=== PATIENT | male | born 1960 | race Two or more races ===

== ENCOUNTER 2020-07-31 12:12 | Outpatient (REF) | payer OTHER, SELFPAY ==
--- NOTE | 2020-07-31 12:23 | XR_ITS ---
EXAMINATION: XR knee LT 4V CLINICAL INFORMATION: Reason for Exam PAIN IN LEFT KNEE COMPARISON: None available at the time of this dictation. TECHNIQUE: frontal, lateral, tunnel and patella sunrise views FINDINGS: BONES: No fracture or dislocation is present. JOINTS: Narrowing of joint spaces and developed osteophytes from the edges of articular surfaces suggest degenerative osteoarthritis. SOFT TISSUE: Normal XR/XR knee LT 4V IMPRESSION: Mild DJD primarily medial compartment.
--- NOTE | 2020-07-31 12:24 | XR_ITS ---
EXAMINATION: XR ANKLE, LEFT CLINICAL INFORMATION: Left ankle pain. COMPARISON: None TECHNIQUE: AP, lateral, and mortise views of the left ankle. FINDINGS: The bones and soft tissues are normal. No fracture. Alignment is anatomic. Joint spaces are maintained. No joint effusion. XR/XR ankle LT min 3V IMPRESSION: Unremarkable radiographic appearance of the left ankle.
== END 2020-07-31 12:13 | disposition home or self-care (01) ==
LOC: HO.XRAY 12:12
PROVIDERS: Absent Provider Family Medicine; PCP Family Medicine; Visit Provider Nurse Practitioner Family
DX: M25.562 Pain in left knee (principal); M25.572 Pain in left ankle and joints of left foot; E03.9 Hypothyroidism, unspecified; E78.5 Hyperlipidemia, unspecified; I10 Essential (primary) hypertension; Z79.899 Other long term (current) drug therapy
CPT/HCPCS: 73564; 73610

== ENCOUNTER 2021-01-28 09:29 | Outpatient (REF) | payer OTHER, SELFPAY ==
--- NOTE | ~2021-01-28 | XR_ITS ---
EXAMINATION: LUMBAR SPINE, RIGHT KNEE, AND LEFT KNEE. CLINICAL INFORMATION: Pain COMPARISON: Lumbar spine of July 24, 2009. Right knee of August 21, 2018 TECHNIQUE: 4 views of each knee, 3 view lumbar spine. FINDINGS: There are 5 nonrib bearing lumbar vertebra. No acute fractures evident. There is a grade 1 spondylolisthesis L5-S1 with loss of disc space. There appears to be L5 pars defects present. There is narrowing of the T12-L1 disc space with marginal spurring and sclerosis. Sacroiliac joints unremarkable. 4 views of the right knee demonstrate mild narrowing of the medial joint space compartment. No acute fracture or effusion is seen. There is mild spurring patellofemoral joint with maintenance of the joint space. 4 views of the left knee do not demonstrate any evidence of acute fracture or dislocation. Joint spaces are maintained. No effusion present. There is minimal patellar spurring present. There is a bony density density adjacent to the lateral femoral condyle may represent secondary ossification center or sequela of previous trauma. XR/XR knee LT 4V IMPRESSION: Grade 1 spondylolisthesis L5-S1 with bilateral pars defects of L5. Mild degenerative change of the right knee involving the medial joint space compartment and patellofemoral joint. Minimal patellofemoral joint degenerative spurring of the left knee.
--- NOTE | ~2021-01-28 | XR_ITS ---
EXAMINATION: LUMBAR SPINE, RIGHT KNEE, AND LEFT KNEE. CLINICAL INFORMATION: Pain COMPARISON: Lumbar spine of July 24, 2009. Right knee of August 21, 2018 TECHNIQUE: 4 views of each knee, 3 view lumbar spine. FINDINGS: There are 5 nonrib bearing lumbar vertebra. No acute fractures evident. There is a grade 1 spondylolisthesis L5-S1 with loss of disc space. There appears to be L5 pars defects present. There is narrowing of the T12-L1 disc space with marginal spurring and sclerosis. Sacroiliac joints unremarkable. 4 views of the right knee demonstrate mild narrowing of the medial joint space compartment. No acute fracture or effusion is seen. There is mild spurring patellofemoral joint with maintenance of the joint space. 4 views of the left knee do not demonstrate any evidence of acute fracture or dislocation. Joint spaces are maintained. No effusion present. There is minimal patellar spurring present. There is a bony density density adjacent to the lateral femoral condyle may represent secondary ossification center or sequela of previous trauma. XR/XR knee RT 4V IMPRESSION: Grade 1 spondylolisthesis L5-S1 with bilateral pars defects of L5. Mild degenerative change of the right knee involving the medial joint space compartment and patellofemoral joint. Minimal patellofemoral joint degenerative spurring of the left knee.
--- NOTE | ~2021-01-28 | XR_ITS ---
EXAMINATION: LUMBAR SPINE, RIGHT KNEE, AND LEFT KNEE. CLINICAL INFORMATION: Pain COMPARISON: Lumbar spine of July 24, 2009. Right knee of August 21, 2018 TECHNIQUE: 4 views of each knee, 3 view lumbar spine. FINDINGS: There are 5 nonrib bearing lumbar vertebra. No acute fractures evident. There is a grade 1 spondylolisthesis L5-S1 with loss of disc space. There appears to be L5 pars defects present. There is narrowing of the T12-L1 disc space with marginal spurring and sclerosis. Sacroiliac joints unremarkable. 4 views of the right knee demonstrate mild narrowing of the medial joint space compartment. No acute fracture or effusion is seen. There is mild spurring patellofemoral joint with maintenance of the joint space. 4 views of the left knee do not demonstrate any evidence of acute fracture or dislocation. Joint spaces are maintained. No effusion present. There is minimal patellar spurring present. There is a bony density density adjacent to the lateral femoral condyle may represent secondary ossification center or sequela of previous trauma. XR/XR lumbar spine 2-3V IMPRESSION: Grade 1 spondylolisthesis L5-S1 with bilateral pars defects of L5. Mild degenerative change of the right knee involving the medial joint space compartment and patellofemoral joint. Minimal patellofemoral joint degenerative spurring of the left knee.
[2021-01-28 10:41] LABS: Hematocrit 35.9 % (42-52); Hemoglobin 12.6 g/dl (14.0-18.0); Mean Corpuscular HGB Conc 35.1 g/dl (31.0-36.0); Mean Corpuscular Hemoglobin 30.6 pg (27.0-33.0); Mean Corpuscular Volume 87.1 fL (80-98); Mean Platelet Volume 9.2 fL (9.4-12.4); Platelet Count 281 X10*3/uL (160-400); Red Blood Count 4.12 X10*6/uL (4.60-5.80); Red Cell Distribution Width 12.6 % (11.0-16.0)
[2021-01-28 10:50] LABS: Estimated Average Glucose 223 mg/dL; Hemoglobin A1c % 9.4 %
[2021-01-28 11:24] LABS: Alanine Aminotransferase 43 U/L (0-40); Albumin Level 4.3 g/dL (3.5-5.0); Alkaline Phosphatase 123 U/L (39-117); Anion Gap 16 (12-20); Aspartate Amino Transferase 22 U/L (5-37); Bilirubin Direct 0.2 mg/dL (0.0-0.5); Bilirubin Total 0.5 mg/dL (0.0-1.0); Blood Urea Nitrogen 18 mg/dL (9-16); Calcium 9.7 mg/dL (8.4-10.2); Carbon Dioxide 22 mmol/L (22-29); Chloride 99 mmol/L (96-108); Cholesterol 149 mg/dL; Estimated Glomerular Filt Rate 53; Glucose Random 380 mg/dL (60-115); HDL Cholesterol 33 mg/dL; LDL Cholesterol Calculated 78 mg/dl; Potassium 4.5 mmol/L (3.3-5.1); Sodium 132 mmol/L (135-145); Total Protein 6.7 g/dL (6.5-8.0); Triglycerides 194 mg/dL
[2021-01-28 11:33] LABS: Thyroid Stimulating Hormone 1.77 uIU/mL (0.32-4.0)
[2021-01-28 15:46] LABS: Creatinine Urine 34.26 mg/dL; Microalbum/Creatinine Ratio Ur 23.3 ug/mg cr
== END 2021-01-28 09:30 | disposition home or self-care (01) ==
LOC: HO.LAB 09:29
PROVIDERS: PCP Family Medicine; Visit Provider Family Medicine
DX: M25.561 Pain in right knee (principal); M25.562 Pain in left knee; M54.5 Low back pain; E03.9 Hypothyroidism, unspecified; E11.29 Type 2 diabetes mellitus with other diabetic kidney complication; E78.5 Hyperlipidemia, unspecified; I10 Essential (primary) hypertension
CPT/HCPCS: 36415; 72100; 73564; 80048; 80061; 80076; 82043; 82306; 83036; 84439; 84443; 85027

== ENCOUNTER 2022-08-20 07:21 | Outpatient (REF) | payer MEDICARE, SELFPAY ==
[2022-08-20 09:01] LABS: Hematocrit 36.4 % (42.0-52.0); Hemoglobin 12.6 g/dl (14.0-18.0); Mean Corpuscular HGB Conc 34.6 g/dl (31.0-36.0); Mean Corpuscular Volume 86.7 fL (80.0-98.0); Mean Platelet Volume 9.5 fL (9.4-12.4); Platelet Count 292 X10*3/uL (160-400); Red Cell Distribution Width 12.5 % (11.0-16.0); White Blood Count 11.3 X10*3/uL (4.8-10.8)
[2022-08-20 09:14] LABS: Estimated Average Glucose 232 mg/dL; Hemoglobin A1c % 9.7 %
[2022-08-20 09:50] LABS: Creatinine Urine 112.32 mg/dL; Microalbum/Creatinine Ratio Ur 56.9 ug/mg cr
[2022-08-20 09:51] LABS: Alanine Aminotransferase 41 U/L (0-40); Albumin Level 4.2 g/dL (3.5-5.0); Alkaline Phosphatase 97 U/L (39-117); Anion Gap 16 (12-20); Aspartate Amino Transferase 20 U/L (5-37); Bilirubin Direct 0.2 mg/dL (0.0-0.5); Bilirubin Total 0.4 mg/dL (0.0-1.0); Blood Urea Nitrogen 20 mg/dL (9-16); Calcium 9.8 mg/dL (8.4-10.2); Carbon Dioxide 26 mmol/L (22-29); Chloride 102 mmol/L (96-108); Cholesterol 146 mg/dL; Estimated Glomerular Filt Rate 53; Glucose Random 171 mg/dL (60-115); HDL Cholesterol 33 mg/dL; LDL Cholesterol Calculated 87 mg/dl; Potassium 4.5 mmol/L (3.3-5.1); Sodium 139 mmol/L (135-145); Total Protein 6.5 g/dL (6.5-8.0); Triglycerides 132 mg/dL
[2022-08-20 10:12] LABS: Free T4 (Free Thyroxine) 1.25 ng/dL (0.71-1.85); Thyroid Stimulating Hormone 3.94 uIU/mL (0.32-4.0); Vitamin D 25-OH Total 26.5 ng/mL (>30)
== END 2022-08-20 07:22 | disposition home or self-care (01) ==
LOC: HO.LAB 07:21
PROVIDERS: PCP Family Medicine; Visit Provider Family Medicine
DX: I10 Essential (primary) hypertension (principal); E11.9 Type 2 diabetes mellitus without complications
CPT/HCPCS: 36415; 80048; 80061; 80076; 82043; 82306; 83036; 84439; 84443; 85027

== ENCOUNTER 2022-12-01 07:06 | Outpatient (REF) | payer MEDICARE, SELFPAY ==
[2022-12-01 07:27] LABS: MANUAL DIFF FLAG NO
[2022-12-01 07:36] LABS: Basophils Percent Auto 0.3 % (0-2); Eosinophils Absolute Auto 0.5 X10*3/uL (0.0-0.4); Eosinophils Percent Auto 4.4 % (0-4); Hematocrit 36.3 % (42.0-52.0); Hemoglobin 12.6 g/dl (14.0-18.0); Imm Gran Abs Auto 0.04 X10*3/uL (0.00-0.03); Imm Gran Pct Auto 0.4 % (0.0-0.4); Lymphocytes Absolute Auto 3.1 X10*3/uL (1.2-4.9); Mean Corpuscular HGB Conc 34.7 g/dl (31.0-36.0); Mean Corpuscular Hemoglobin 30.1 pg (27.0-33.0); Mean Corpuscular Volume 86.6 fL (80.0-98.0); Monocytes Percent Auto 8.8 % (2-11); Neutrophils Absolute Auto 6.2 x10*3/uL (2.0-8.3); Neutrophils Percent Auto 57.1 % (45-73); Platelet Count 280 X10*3/uL (160-400); Red Blood Count 4.19 X10*6/uL (4.60-5.80); Red Cell Distribution Width 12.8 % (11.0-16.0); White Blood Count 10.8 X10*3/uL (4.8-10.8)
[2022-12-01 08:25] LABS: Alanine Aminotransferase 34 U/L (0-40); Albumin Level 4.2 g/dL (3.5-5.0); Alkaline Phosphatase 86 U/L (39-117); Anion Gap 10 (12-20); Aspartate Amino Transferase 25 U/L (5-37); Bilirubin Direct 0.1 mg/dL (0.0-0.5); Bilirubin Total 0.4 mg/dL (0.0-1.0); Blood Urea Nitrogen 17 mg/dL (9-16); Calcium 10.3 mg/dL (8.4-10.2); Carbon Dioxide 30 mmol/L (22-29); Chloride 102 mmol/L (96-108); Estimated Glomerular Filt Rate > 60; Glucose Random 137 mg/dL (60-115); Potassium 4.4 mmol/L (3.3-5.1); Sodium 138 mmol/L (135-145); Total Protein 6.5 g/dL (6.5-8.0)
[2022-12-01 08:32] LABS: Estimated Average Glucose 151 mg/dL; Hemoglobin A1c % 6.9 %
[2022-12-01 08:48] LABS: Vitamin B12 820 pg/mL (200-900)
== END 2022-12-01 07:07 | disposition home or self-care (01) ==
LOC: HO.LAB 07:06
PROVIDERS: PCP Family Medicine; Visit Provider Family Medicine
DX: E11.9 Type 2 diabetes mellitus without complications (principal); D64.9 Anemia, unspecified
CPT/HCPCS: 36415; 80048; 80076; 82607; 83036; 85025

== ENCOUNTER 2023-05-19 08:14 | Outpatient (REF) | payer MEDICARE, SELFPAY ==
[2023-05-19 11:44] LABS: MANUAL DIFF FLAG NO
[2023-05-19 11:47] LABS: Basophils Absolute Auto 0.1 X10*3/uL (0.0-0.2); Basophils Percent Auto 0.7 % (0-2); Eosinophils Absolute Auto 0.6 X10*3/uL (0.0-0.4); Eosinophils Percent Auto 5.3 % (0-4); Hemoglobin 13.7 g/dl (14.0-18.0); Imm Gran Abs Auto 0.04 X10*3/uL (0.00-0.03); Imm Gran Pct Auto 0.4 % (0.0-0.4); Lymphocytes Percent Auto 28.7 % (20-40); Mean Corpuscular HGB Conc 34.3 g/dl (31.0-36.0); Mean Corpuscular Hemoglobin 30.2 pg (27.0-33.0); Mean Corpuscular Volume 88.3 fL (80.0-98.0); Mean Platelet Volume 10.4 fL (9.4-12.4); Monocytes Absolute Auto 0.9 X10*3/uL (0.1-1.2); Monocytes Percent Auto 8.2 % (2-11); Neutrophils Absolute Auto 5.9 x10*3/uL (2.0-8.3); Neutrophils Percent Auto 56.7 % (45-73); Platelet Count 371 X10*3/uL (160-400); Red Blood Count 4.53 X10*6/uL (4.60-5.80); Red Cell Distribution Width 12.5 % (11.0-16.0); White Blood Count 10.4 X10*3/uL (4.8-10.8)
[2023-05-19 11:54] LABS: Appearance Urine Cloudy; Color Urine Yellow; Glucose Urine UA >=1000 mg/dL (Negative); Leukocyte Esterase Urine Moderate (2+) (Negative); Nitrite Urine Negative (Negative); Specific Gravity - Urine 1.015 (1.005-1.025); UMIC TRIGGER UA YES; Urine Blood Negative (Negative); Urine Ketones Negative (Negative); Urine Protein Negative (Neg-Trace)
[2023-05-19 11:57] LABS: Estimated Average Glucose 260 mg/dL; Hemoglobin A1c % 10.7 % (<6.0)
[2023-05-19 11:59] LABS: Bacteria Urine 1+ (None Seen); Hyaline Casts Urine 0-2 /LPF (0-2); RBC Urine 0-2 /HPF (0-2); Squamous Epithelial Cell Urine 0-2 /HPF (0-2); WBC Urine >50 /HPF (0-5)
[2023-05-19 12:22] LABS: Alanine Aminotransferase 77 U/L (0-40); Albumin Level 4.6 g/dL (3.5-5.0); Alkaline Phosphatase 126 U/L (39-117); Anion Gap 16 (12-20); Aspartate Amino Transferase 45 U/L (5-37); Bilirubin Direct 0.1 mg/dL (0.0-0.5); Bilirubin Total 0.3 mg/dL (0.0-1.0); Blood Urea Nitrogen 22 mg/dL (9-16); Calcium 10.4 mg/dL (8.4-10.2); Carbon Dioxide 26 mmol/L (22-29); Chloride 98 mmol/L (96-108); Cholesterol 142 mg/dL (<200); Estimated Glomerular Filt Rate 50; Glucose Random 291 mg/dL (60-115); HDL Cholesterol 38 mg/dL (>40); Iron 131 mcg/dL (45-160); LDL Cholesterol Calculated 76 mg/dL (<100); Percent Iron Saturation 37 % (15-50); Potassium 4.4 mmol/L (3.3-5.1); Sodium 136 mmol/L (135-145); Total Iron Binding Capacity 351 mcg/dL (228-428); Total Protein 7.9 g/dL (6.5-8.0); Triglycerides 141 mg/dL (<150); Unsaturated Iron Binding 220 ug/dL
[2023-05-19 12:28] LABS: Creatinine Urine 50.42 mg/dL; Microalbum/Creatinine Ratio Ur 75.3 ug/mg cr (<30)
[2023-05-19 12:37] LABS: Free T4 (Free Thyroxine) 1.25 ng/dL (0.71-1.85); Thyroid Stimulating Hormone 2.99 uIU/mL (0.32-4.0); Vitamin D 25-OH Total 49.9 ng/mL (>30)
[2023-05-19 12:44] LABS: Folate 14.2 ng/mL (> or = 4.0); Prostate Specific Antigen 1.14 ng/mL (<0.05-4.0); Vitamin B12 1559 pg/mL (200-900)
== END 2023-05-19 08:15 | disposition home or self-care (01) ==
LOC: HO.HHCL 08:14
PROVIDERS: Visit Provider Family Medicine
DX: D64.9 Anemia, unspecified (principal); R35.1 Nocturia; E11.9 Type 2 diabetes mellitus without complications; E03.9 Hypothyroidism, unspecified; Z12.5 Encounter for screening for malignant neoplasm of prostate; E78.5 Hyperlipidemia, unspecified; I10 Essential (primary) hypertension; J44.9 Chronic obstructive pulmonary disease, unspecified
CPT/HCPCS: 36415; 80048; 80061; 80076; 81001; 82043; 82306; 82570; 82607; 82746; 83036; 83540; 84153; 84439; 84443; 85025; 87086; 87088; 87186

== ENCOUNTER → 2023-06-21 07:48 | Outpatient (REF) | payer MEDICARE, SELFPAY ==
--- NOTE | ~2023-06-21 | NM_ITS ---
EXAMINATION: CA RADIONUCLIDE SOLID FOOD GASTRIC EMPTYING 4-HOUR STUDY CLINICAL INFORMATION: Intermittent nausea and uncontrolled diabetes. COMPARISON: None TECHNIQUE: A standard meal consisting of 4 oz of Egg Beaters brand tagged with 1000 microcuries Tc-99m Sulfur Colloid, 8 oz water and 2 slices of toast with jelly was administered orally to the patient. Images were obtained using a dual head gamma camera in the anterior and posterior projections over of the stomach immediately post ingestion and at hourly intervals up to 4 hours post ingestion. The anterior and posterior counts at each time interval were averaged using the geometric mean and expressed as percentage of the immediate post ingestion counts. FINDINGS: There is good visualization of activity in the stomach immediately post ingestion. As the study progresses, there is good clearance of activity from the stomach and visualization of progressively increasing small bowel activity. By the end of the study, there is almost no retention noted in the stomach. Retention in the stomach at each time interval was: 1 hour 69% (normal 37%-90%) 2 hours 52% (normal 30%-60%) 3 hours 27% 4 hours 8% (normal 0%-10%) NM/CA gastroesophageal reflux IMPRESSION: Normal 4-hour solid food gastric emptying study. For solid meal, rapid gastric emptying is less than 30% at 60 minutes. Delayed gastric emptying criteria is more than 60% remaining at 120 minutes or more than 10% at 240 minutes. The 4-hour value is the best discriminator of a normal or abnormal result). Gastric emptying study grading per JNMT Consensus Recommendations in 2008 (https://tech.snmjournals.org/content/36/44) Grade 1 (mild retention): 11-20% at 4h Grade 2 (moderate retention): 21-35% at 4h Grade 3 (severe retention): 36-50% at 4h Grade 4 (very severe retention): >50% retention at 4h
== END ==
LOC: HO.NUCMED 07:48
PROVIDERS: PCP Family Medicine; Visit Provider Family Medicine
DX: R11.0 Nausea (principal)
CPT/HCPCS: 78262; A9541

== ENCOUNTER 2023-06-28 11:31 | Outpatient (REF) | payer MEDICARE, SELFPAY | END 2023-06-28 11:32 | disposition home or self-care (01) | LOC: HO.HHCL 11:31 | PROVIDERS: Visit Provider Family Medicine | DX: N39.0 Urinary tract infection, site not specified (principal) | CPT/HCPCS: 87086; 87088; 87186 ==

== ENCOUNTER 2023-07-29 13:42 | Outpatient (REF) | payer MEDICARE, SELFPAY | END 2023-07-29 13:43 | disposition home or self-care (01) | LOC: HO.HHCLNP 13:42 | PROVIDERS: Visit Provider Family Medicine | DX: R35.1 Nocturia (principal) | CPT/HCPCS: 87086; 87088; 87186 ==

== ENCOUNTER 2023-08-17 07:43 | Outpatient (AMB) | payer MEDICARE, SELFPAY ==
--- NOTE | 2023-08-17 08:17 | MHC.OFFVIS ---
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 Accompanied by: Self / Same As Patient Allergies dulaglutide [From [facility]] Adverse Reaction (Intermediate, Verified 08/17/23 08:23) infection Medication List - Last Reconciled 08/17/23 by Itz Wray MD acetaminophen ER mg PO amlodipine 10 mg PO DAILY atorvastatin 40 mg PO DAILY chlorthalidone 25 mg PO DAILY famotidine 40 mg PO DAILY finerenone (Kerendia) 10 mg PO DAILY hydroxyzine pamoate 25 mg PO TID lansoprazole 30 mg PO DAILY levothyroxine 75 mcg PO DAILY melatonin mg PO metformin 1,000 mg PO BID metoprolol succinate ER 100 mg PO DAILY olmesartan 40 mg PO DAILY sertraline mg PO tirzepatide (Mounjaro) mg subcut tramadol 50 mg PO Q4H PRN HPI HPI Comments History of Present Illness Details Patient is here for consultation regarding generalized fatigue. He states that he is extremely fatigued and he can only walk very short distances before he has to stop. When he gets up in the morning, he apparently feels short of breath and hence has use inhalers. Then feels better. No clear anginal-type symptoms. Has no history of coronary disease myocardial infarction or cardiomyopathy. Multiple cardiovascular risk factors including diabetes, hypertension, dyslipidemia, chronic kidney disease, smoking. COUNTS INCLUDE 234 BEDS AT THE [facility] Medical History (Updated 08/17/23 @ 09:16 by Itz Wray MD) Smoking Hyperlipidemia, unspecified Essential hypertension Type 2 diabetes mellitus with renal complication Surgical History (Updated 08/17/23 @ 08:25 by Rossana Castillo) No pertinent past surgical history Family History (Updated 08/17/23 @ 08:26 by Rossana Castillo) Mother HTN (hypertension) Father Diabetes Social History (Updated 08/17/23 @ 08:25 by Rossana Castillo) Patient Tobacco Use Status: Current everyday Tobacco user Cigarettes Per Day: 1 Review of Systems Const Denies chills, Denies daytime sleepiness, Denies fatigue, Denies fever(s), Denies frequent falls, Denies night sweats, Denies snoring, Denies weakness, Denies weight gain and Denies weight loss Eyes Denies loss of vision ENT Denies dizziness and Denies hearing loss Card Denies chest pain, Denies chest pain with activity, Denies syncope, Denies rapid heart rate, Denies edema, Denies claudication, Denies leg edema, Denies lightheadedness, Denies palpitations and Denies orthopnea Resp Denies cough, Denies excessive phlegm production, Denies snoring and Denies wheezing GI Denies abdominal pain, Denies hematochezia, Denies change in bowel habits, Denies change in stool character, Denies heartburn, Denies nausea and Denies vomiting Denies hematuria, Denies dysuria and Denies urinary frequency Musc Denies arthralgias, Denies muscle weakness, Denies numbness and Denies tingling Skin/Breast Denies nail changes and Denies rash Neuro Denies Abnormal speech present, Denies dizziness, Denies syncope, Denies frequent falls, Denies loss of vision, Denies memory loss, Denies numbness, Denies tingling and Denies weakness Psych Denies depression and Denies memory loss Endo Denies fatigue and Denies palpitations Aller/Immun Denies wheezing Physical Exam Vital Signs: Last Vital Signs Pulse 76 08/17/23 08:22 BP 122/62 08/17/23 08:22 BMI result Body Mass Index 25.5 Const General: comfortable and no acute distress Orientation/consciousness: patient oriented x3 HEENT Other: Unremarkable Head: Yes normal to inspection Neck Neck: Yes normal visual inspection Chest Chest palpation & inspection: normal inspection of the chest Resp Auscultation: clear to auscultation bilaterally Cardio Palpation: normal PMI Heart sounds: S1 normal heart sound present, S2 normal heart sound present, no gallops, no murmurs and no rubs GI Palpation (GI): Soft to palpation Back/Spine/Pelvis Other: unremarkable Skin General skin exam: no rashes or lesions noted Neuro General: patient oriented x3 Speech: No Abnormal speech present Extrem General: Yes normal to inspection Psych Mental Status: mental status grossly normal Office Procedures EKG Details: EKG with sinus rhythm at 76/Min; no significant ST-T changes and otherwise [place]remark[place] [id number], Complete Assessment & Plan Assessment & Plan (1) Fatigue: Code(s): R53.83 - Other fatigue (2) Shortness of breath: Code(s): R06.02 - Shortness of breath (3) Type 2 diabetes mellitus with renal complication: Code(s): E11.29 - Type 2 diabetes mellitus with other diabetic kidney complication (4) Essential hypertension: Code(s): I10 - Essential (primary) hypertension (5) Hyperlipidemia, unspecified: Code(s): E78.5 - Hyperlipidemia, unspecified (6) Smoking: Code(s): F17.200 - Nicotine dependence, unspecified, uncomplicated Plan Multiple cardiovascular risk factors, exertional fatigue, some shortness of breath. He needs workup for obstructive CAD. Echocardiogram and exercise stress perfusion imaging are being ordered. Once these are completed, will need to see back in follow-up. Otherwise, aggressive risk factor modification. Smoking cessation. Orders: Orders NM cardiolite stress test Today R07.2 - Precordial pain CA echo transthoracic complete Today I25.10 - Atherosclerotic heart disease of three affiliated coronary artery without angina pectoris CA stress test Today R07.2 - Precordial pain Coding Level of Care Code New Pt Level 4 (67198) Diagnoses Fatigue R53.83 Shortness of breath R06.02 Type 2 diabetes mellitus with renal complication E11.29 Essential hypertension I10 Hyperlipidemia, unspecified E78.5 Smoking F17.200 CPT Codes EKG - CPT: 60045-[id number], Complete ([id number])
[2023-08-17 08:22] VITALS: BP 122/62; PULSE 76; BMI 25.5
== END 2023-08-17 08:55 | disposition home or self-care (01) ==
PROVIDERS: PCP Family Medicine; Visit Provider Internal Medicine
DX: R53.83 Other fatigue (principal); R06.02 Shortness of breath; E11.29 Type 2 diabetes mellitus with other diabetic kidney complication; I10 Essential (primary) hypertension; E78.5 Hyperlipidemia, unspecified; F17.200 Nicotine dependence, unspecified, uncomplicated
CPT/HCPCS: 93010; 99204

== ENCOUNTER → 2023-08-17 07:43 | Outpatient (BNVA) | payer MEDICARE, SELFPAY | PROVIDERS: PCP Family Medicine; Visit Provider Internal Medicine | DX: R53.83 Other fatigue (principal); R06.02 Shortness of breath; E11.29 Type 2 diabetes mellitus with other diabetic kidney complication; E78.5 Hyperlipidemia, unspecified; F17.210 Nicotine dependence, cigarettes, uncomplicated | CPT/HCPCS: 93005; 99202 ==

== ENCOUNTER 2023-10-11 08:34 | Outpatient (REF) | payer MEDICARE, SELFPAY ==
[2023-10-11 12:23] LABS: Anion Gap 15 (12-20); Blood Urea Nitrogen 35 mg/dL (9-16); Calcium 9.8 mg/dL (8.4-10.2); Carbon Dioxide 22 mmol/L (22-29); Chloride 104 mmol/L (96-108); Estimated Glomerular Filt Rate 45; Glucose Random 156 mg/dL (60-115); Potassium 4.5 mmol/L (3.3-5.1); Sodium 136 mmol/L (135-145)
== END 2023-10-11 08:35 | disposition home or self-care (01) ==
LOC: HO.HHCL 08:34
PROVIDERS: Visit Provider Family Medicine
DX: E11.22 Type 2 diabetes mellitus with diabetic chronic kidney disease (principal); N18.31 Chronic kidney disease, stage 3a
CPT/HCPCS: 36415; 80048

== ENCOUNTER 2023-10-24 12:53 | Outpatient (REF) | payer MEDICARE, SELFPAY ==
--- NOTE | ~2023-10-24 | XR_ITS ---
EXAMINATION: XR KNEE LEFT XR KNEE RIGHT CLINICAL INFORMATION: Pain COMPARISON: 01/28/2021 TECHNIQUE: Right knee, 3 views Left knee, 4 views FINDINGS: Left knee: Negligible marginal osteophyte formation at the patella. No radiographic evidence of any significant arthritic process at the knee. The joint spaces are well-preserved. Alignment is normal at the patellofemoral and tibiofemoral compartments. No joint effusion or intra-articular osteochondral body. Right knee: Bones, joints and soft tissues have a normal appearance. XR/XR knee RT 3V IMPRESSION: The right knee is radiographically normal. There is negligible osteoarthrosis of the patellofemoral joint of the left knee.
--- NOTE | ~2023-10-24 | XR_ITS ---
EXAMINATION: XR LUMBOSACRAL SPINE CLINICAL INFORMATION: Pain COMPARISON: Lumbar spine radiographs from 01/28/2021 TECHNIQUE: Three views of the lumbosacral spine. FINDINGS: The lumbar vertebral body heights are maintained. No acute compression fractures. At T12-L1, there appears to be worsening loss of anterior disc space, vacuum disc phenomenon, anterior endplate sclerosis and osteophytosis. At L1-L2, there is mild narrowing of disc space, anterior vertebral osteophyte formation and chronic minimal retrolisthesis of L1 on L2. Disc spaces are maintained at L2-L3, L3-L4 and L4-5. Chronic severe degenerative disc disease of L5, bilateral pars defects of L5 and approximately 25% anterolisthesis of L5 on S1. Sacrum and sacroiliac joints are unremarkable. There is dense atherosclerotic calcification of the abdominal aorta without aneurysm. XR/XR lumbar spine 2-3V IMPRESSION: * Interval worsening discovertebral degenerative changes at T12-L1 compared to 01/28/2021. * Chronic severe degenerative disc disease and anterolisthesis at L5-S1.
--- NOTE | ~2023-10-24 | XR_ITS ---
EXAMINATION: XR KNEE LEFT XR KNEE RIGHT CLINICAL INFORMATION: Pain COMPARISON: 01/28/2021 TECHNIQUE: Right knee, 3 views Left knee, 4 views FINDINGS: Left knee: Negligible marginal osteophyte formation at the patella. No radiographic evidence of any significant arthritic process at the knee. The joint spaces are well-preserved. Alignment is normal at the patellofemoral and tibiofemoral compartments. No joint effusion or intra-articular osteochondral body. Right knee: Bones, joints and soft tissues have a normal appearance. XR/XR knee LT 4V IMPRESSION: The right knee is radiographically normal. There is negligible osteoarthrosis of the patellofemoral joint of the left knee.
--- NOTE | ~2023-10-24 | XR_ITS ---
EXAMINATION: XR WRIST LEFT XR WRIST RIGHT CLINICAL INFORMATION: Pain COMPARISON: None TECHNIQUE: Left wrist, 3 views Right wrist, 3 views FINDINGS: RIGHT WRIST: There is ulnar osteophyte formation at the degenerated distal radioulnar joint. Moderate loss of the articular cartilage space of the radiolunate joint with subarticular sclerosis and radial osteophyte formation. A small ossific body measuring up to 0.4 cm in length projects posteromedial to the distal ulna and this has questionable communication with the ulnocarpal joint. Scapholunate joint space is 0.3 cm wide. LEFT WRIST: There is ulnar osteophyte formation at the distal radioulnar joint. There appears to be an ossific body in the region of this joint. Also, an ossific body of 0.8 cm in length is adjacent to the ulnar styloid. This might communicate with the ulnocarpal/radiocarpal joint. There is loss of radiolunate joint space with subarticular sclerosis and radial osteophyte formation. The scapholunate joint space is 0.3 cm wide. Small metacarpal osteophytes are present at the first carpometacarpal joint. 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 * Also, ossific bodies are seen adjacent to each distal ulna, and these possibly communicate with the proximal wrist joint. * There is borderline widening of bilateral scapholunate joint spaces. * Mild osteoarthritis of the left first carpometacarpal joint.
--- NOTE | ~2023-10-24 | XR_ITS ---
EXAMINATION: XR WRIST LEFT XR WRIST RIGHT CLINICAL INFORMATION: Pain COMPARISON: None TECHNIQUE: Left wrist, 3 views Right wrist, 3 views FINDINGS: RIGHT WRIST: There is ulnar osteophyte formation at the degenerated distal radioulnar joint. Moderate loss of the articular cartilage space of the radiolunate joint with subarticular sclerosis and radial osteophyte formation. A small ossific body measuring up to 0.4 cm in length projects posteromedial to the distal ulna and this has questionable communication with the ulnocarpal joint. Scapholunate joint space is 0.3 cm wide. LEFT WRIST: There is ulnar osteophyte formation at the distal radioulnar joint. There appears to be an ossific body in the region of this joint. Also, an ossific body of 0.8 cm in length is adjacent to the ulnar styloid. This might communicate with the ulnocarpal/radiocarpal joint. There is loss of radiolunate joint space with subarticular sclerosis and radial osteophyte formation. The scapholunate joint space is 0.3 cm wide. Small metacarpal osteophytes are present at the first carpometacarpal joint. XR/XR wrist LT min 3V IMPRESSION: * There is osteoarthritis of bilateral DRUJs and radiolunate joints. * Also, ossific bodies are seen adjacent to each distal ulna, and these possibly communicate with the proximal wrist joint. * There is borderline widening of bilateral scapholunate joint spaces. * Mild osteoarthritis of the left first carpometacarpal joint.
== END 2023-10-24 12:54 | disposition home or self-care (01) ==
LOC: HO.HHCX 12:53
PROVIDERS: Visit Provider Family Medicine
DX: M25.50 Pain in unspecified joint (principal)
CPT/HCPCS: 72100; 73110; 73562; 73564

== ENCOUNTER → 2024-01-16 08:50 | Outpatient (BNVA) | payer MEDICARE, SELFPAY | PROVIDERS: PCP Family Medicine; Visit Provider Nurse Practitioner Family ==

== ENCOUNTER 2024-07-13 16:01 | Outpatient (REF) | payer MEDICARE, SELFPAY | END 2024-07-13 16:02 | disposition home or self-care (01) | LOC: HO.HHCLNP 16:01 | PROVIDERS: Visit Provider Family Medicine | DX: N39.0 Urinary tract infection, site not specified (principal) | CPT/HCPCS: 87086; 87088; 87186 ==

== ENCOUNTER 2024-10-16 09:45 | Outpatient (REF) | payer MEDICARE, SELFPAY ==
--- NOTE | ~2024-10-16 | US_ITS ---
EXAMINATION: BILATERAL CAROTID ULTRASOUND WITH DOPPLER HISTORY: intermittent dizziness COMPARISON: There are no prior studies for comparison. TECHNIQUE: Real time and Color and Spectral doppler ultrasonography of the carotid and vertebral arteries was performed in multiple planes. FINDINGS: There is mild plaque at the right carotid bifurcation and a moderate amount of plaque at the left carotid bifurcation. VERTEBRAL FLOW DIRECTION: Antegrade bilaterally. PEAK SYSTOLIC VELOCITIES (in cm/sec): RIGHT: CCA: Prox: 71 Dist: 57 ICA: Prox: 54 Mid: 76 Dist: 113 ICA/CCA Ratio: 1.59 ECA: 62 Peak ICA EDV: 22 LEFT: CCA: Prox: 61 Dist: 58 ICA: Prox: 71 Mid: 94 Dist: 89 ICA/CCA Ratio: 1.54 ECA: 46 Peak ICA EDV: 28 US/US carotid duplex BI IMPRESSION: No significant internal carotid artery stenosis is identified. Electronically signed by: Ceferino Cuba MD 10/16/2024 11:23 AM EDT
--- NOTE | ~2024-10-16 | CT_ITS ---
EXAMINATION: CT HEAD WITHOUT IV CONTRAST HISTORY: intermittent dizziness, increased falls. TECHNIQUE: Unenhanced helical CT of the head was performed per standard departmental protocol. Coronal and sagittal reformats of the head were also evaluated. One or more of the following techniques was used for dose reduction: Automated exposure control, adjustment of the mA and/or kV according to patient size, use of iterative reconstruction technique. DLP: 815 mGy-cm COMPARISON: There are no prior studies for comparison. FINDINGS: BRAIN: The brain parenchyma is unremarkable. There is normal berg/white differentiation. The ventricular system is normal in size and configuration. There is no mass effect or midline shift. No intra- or extra-axial fluid collections are identified. SINUSES: There is fluid in both maxillary sinuses. There is partial opacification of the bilateral ethmoid air cells. There is mucosal thickening in the bilateral frontal sinuses. The mastoid air cells and middle ear cavities are well pneumatized. ORBITS: The visualized orbits are unremarkable. BONES/SOFT TISSUES: The extracranial soft tissues are unremarkable. The calvarium is intact. No suspicious lytic or sclerotic lesions. CT/CT head/brain wo IV con IMPRESSION: 1. No acute intracranial abnormality. 2. Acute bilateral maxillary sinusitis. Electronically signed by: Ceferino Cuba MD 10/16/2024 01:03 PM EDT
--- NOTE | 2024-10-16 11:03 | CA_ITS ---
Transthoracic Echocardiogram Patient (Last, First, Middle): Meg Pérez, Gender: Male Date of : 1960 Age: 64 Procedure Date: 10/16/2024 Procedure Type: Transthoracic Echocardiogram Location: OP Height: 175.26 cm Weight: 80.74 kg BSA: 1.97 m2 Heart Rate: bpm BP: 126 / 78 mmHg Kettle Hand: DARI Referring MD: Suzan Hunter DO Library Specialist: Sha Eckert MD Symptoms: R42 DIZZINESS Study Quality: Fair, contrast ECG Rhythm: Sinus Conclusions: - 1. Technically limited study 2. Hyperdynamic LV ejection fraction with mild dynamic obstructive physiology noted by Valsalva maneuver 3. Cardiac valvular Dopplers within normal limits Findings Procedure Information Contrast agent, definity, is being given per protocol without apparent complications. Left Ventricle Normal left ventricular cavity size. There is normal left ventricular wall thickness. The left ventricular systolic function is hyperdynamic. There is systolic anterior motion of the chordae of the mitral valve. Spectral Doppler is indicative of an impaired relaxation filling pattern. E/E prime ratio is between 8 and 15 consistent with indeterminate filling pressures. there was no significant gradient at rest although with Valsalva there is mildly increased gradient at 20 mm Hg suggestive of mild dynamic obstructive physiology Right Ventricle Normal right ventricular cavity size and systolic function. Atria The left atrium is normal in size. Interatrial shunt cannot be excluded. The right atrium was not well visualized. Aortic Valve The aortic valve was not well visualized. There is no aortic valve stenosis. There is no aortic valve regurgitation. Mitral Valve There is mild anterior and moderate posterior mitral leaflet thickening. There is moderate mitral annular calcification. There is trace mitral valve regurgitation. There is no mitral valve stenosis. Pulmonic Valve The pulmonic valve was not well visualized. Tricuspid Valve The tricuspid valve was not well visualized. Tricuspid regurgitation envelope is inadequate for calculation of right ventricular systolic pressure. Normal right atrial pressure. Great Vessels The aorta was not well visualized. The pulmonary artery was not well visualized. Venous The inferior vena cava is normal in size. Pericardium/Pleural The pericardium was not well visualized. Prior Study Comparison No prior study available for comparison. Measurements 2D Linear Measurements IVSd: 1.08 0.6-0.9/0.6-1.0 cm LVIDd: 4.04 3.9-5.3/4.2-5.9 cm LVIDd Index: 2.05 2.4-3.2/2.2-3.1 cm/m2 LVIDs: 2.54 2.0-3.6 cm LVPWd: 0.91 0.7-1.1 cm LA Diam: 2.70 2.7-3.8/3.0-4.0 cm LAIDs Index: 1.37 1.5-2.3 cm/m2 LV Mass: 159.22 67-162/88-224 g LV Mass Index: 80.82 43-95/49-115 g/m2 LVOT Diam: 2.00 3.0+(-)1.3 cm 2D Systolic Function EF 4C: 80.90 >55% EF 2C: 73.70 >55% EF BiP: 77.60 >55% Mitral Valve MV Pk E: 0.68 MV PK A: 1.07 MV Decel Time: 231.00 E/A: 0.60 E'Lateral: 10.30 E'Medial: 6.74 E/E' Med: 10.10 E/E' Lat: 6.60 PHT: 68.00 MVA PHT: 3.24 Decel Glenn: 2.96 Aortic Valve AoV Pk Werner: 1.49 AoV Mn Werner: 1.02 AoV VTI: 0.24 AoV Pk Grad: 9.00 Aov Mn Grad: 5.00 JEFF Cont.VTI: 2.87 LVOT LVOT Pk Werner: 1.33 LVOT Mn Werner: 0.85 LVOT VTI: 0.22 LVOT Pk Grad: 7.00 LVOT Mn Grad: 3.00 LVOT Diam: 2.00 LVOT Area: 3.14 Diastolic Function MV Pk E: 0.68 MV Pk A: 1.07 E/A: 0.60 E'Medial: 6.74 E/E' Med: 10.10 E' Laterial: 10.30 E/E' Lat: 6.60 Right Ventricle TAPSE (mm): 20.30 TVS' Werner: 15.80 Tricuspid Valve RA Press: 3.00 Great Vessels Aorta Sinus of Valsalva: 3.31 2.0-3.5 cm Updated in Other Vendor System with Status of Final Sha Eckert MD electronically signed on 10/17/2024 1:37:03 PM with status of Final
== END 2024-10-16 09:46 | disposition home or self-care (01) ==
LOC: HO.US 09:45
PROVIDERS: PCP Family Medicine; Visit Provider Family Medicine
DX: R42 Dizziness and giddiness (principal); R29.6 Repeated falls
CPT/HCPCS: 70450; 87086; 87088; 87186; 93306; 93880; Q9957

== ENCOUNTER → 2024-10-16 09:47 | Outpatient (BNV) | payer MEDICARE, SELFPAY | PROVIDERS: PCP Family Medicine; Visit Provider Radiology Diagnostic Radiology | DX: R42 Dizziness and giddiness (principal) | CPT/HCPCS: 70450; 93880 ==

== ENCOUNTER → 2024-10-16 11:03 | Outpatient (BNV) | payer MEDICARE, SELFPAY | PROVIDERS: PCP Family Medicine; Visit Provider Internal Medicine Cardiovascular Disease | DX: I42.1 Obstructive hypertrophic cardiomyopathy (principal); I34.81 Nonrheumatic mitral (valve) annulus calcification | CPT/HCPCS: 93306 ==

== ENCOUNTER 2024-10-16 17:21 | Outpatient (REF) | payer MEDICARE, SELFPAY | END 2024-10-16 17:22 | disposition home or self-care (01) | LOC: HO.HHCLNP 17:21 | PROVIDERS: Visit Provider Internal Medicine | DX: Z13.89 Encounter for screening for other disorder (principal) | CPT/HCPCS: 87086 ==

== ENCOUNTER → 2025-04-01 09:22 | Outpatient (REF) | payer MEDICARE, SELFPAY ==
--- OUTSIDE RECORDS SUMMARY | 2025-04-01 10:31 | XMS_ITS | Encounter Summary ---
Author Organization [employer] Address [address] [facility] [address] [place] [address] Care Team Providers Care Plate Setter Name Role Phone Suzan Hunter DO Primary Care Provider DelUnruly thomson PharmD Unavailable Unavail able Shira Miller PharmD Unavailable Reason for Visit * Reason Comments Med Refill Encounter Details Date Type Department Care Team ([facility] st Contact Info) Description 11/16/2022 Refill [facility] MEDICINE [address] [place], [place] [phone] Suzan Hunter DO [address] [place], [place] [phone] Insomnia, unspecified type Social History Tobacco Use Types Packs/Day Years Used Date Smoking Tobacco: Every Day Cigarettes Passive Smoke Exposure: Current Alcohol Use Standard Drinks/Week Comments Never 0 (1 standard drink = 0.6 oz pur e alcohol) Depression Answer Date Recorded Patient Health Questionnaire-9 Score 0 08/27/2022 Depression Answer Date Recorded Patient Health Questionnaire-2 Score 0 08/27/2022 Sex and Gender Information Value Date Recorded Sex Assigned at Male 05/24/2022 10:18 AM EDT Legal Sex Male 10:18 AM EDT Gender Identity Male 05/24/2022 10:18 AM EDT Sexual Orientation Straight 05/24/2022 10 :18 AM EDT COVID-19 Exposure Response Date Recorded In the last 10 days, have yo u been in contact with someone who was confirmed or suspected to have Coronavirus/COVID-19? No / Unsure 11/11/2022 9:41 AM EDT documented as of this encounter Plan of Treatment Upcoming Encounters Date Type Department Care Team (Late st Contact Info) Description 08/05/2025 10:00 AM EST Clinical Support [facility] [address] [place] [address] Grace Hidalgo, RN documented as of this encounter Goals Goal Patient Goal Type Associated Problems Recent Progress Patient-Stated? Author Blood Pressure < 140/90 Blood Pressure 110/72(2024 8:55 AM EDT) No Unruly Fabian, PharmD Hemoglobin A1c < 7 Result Component 6.3( 8:57 AM EDT) No AjitlogUnruly andersen, PharmD documented as of this encounter Visit Diagnoses Diagnosis Insomnia, unspecified type documented in this encounter Additional Health Concerns Assessment Noted Time PHQ-9 Depression Total Score: 0 08/27/19 9:13 AM EST documented as of this encounter Care Teams Plate Setter Relationship Specialty Start Date End Date Suzan Hunter DO [address] [place] [address] PCP - General Family Medicine 12/11/19 Unruly Fabian, PharmD [address] [place] [address] Pharmacist Internal Medicine 08/20/22 06/01/23 Shira Miller PharmD [address] [place] [address] Pharmacist Internal Medicine 06/02/23 documented as of this encounter
--- OUTSIDE RECORDS SUMMARY | 2025-04-01 10:31 | XMS_ITS | Encounter Summary ---
Author Organization [employer] Address [address] [place] [address] [address] [place] [address] Care Team Providers Care Charge Hand Name Role Phone Suzan Hunter DO Primary Care Provider [phone] Unruly Fabian PharmD Unavailable Unavail able Shira Miller PharmD Unavailable [phone] Encounter Details Date Type Department Care Team (Latest Contact Info) Description 11/23/2021 Abstract [facility] CONVERSIONS Dental, Provider, DDS Social History Tobacco Use Types Packs/Day Years Used Date Smoking Tobacco: Never Assessed Sex and Gender Information Value Date Recorded Sex Assigned at Male 05/24/2022 10:18 AM EDT Legal Sex Male 10:18 AM EDT Gender Identity Male 05/24/2022 10:18 AM EDT Sexual Orientation Straight 05/24/2022 10 :18 AM EDT documented as of this encounter Plan of Treatment Upcoming Encounters Date Type Department Care Team (Late st Contact Info) Description 08/05/2025 10:00 AM EST Clinical Support [facility] MED[facility]INE [address] [place] [address] Grace Hidalgo, RN documented as of this encounter Visit Diagnoses Not on filedocumented in this encounter Care Teams Charge Hand Relationship Specialty Start Date End Date Suzan Hunter DO [address] [place] [address] PCP - General Family Medicine 12/11/19 Unruly Fabian, PharmD [address] [place] [address] Pharmacist Internal Medicine 08/20/22 06/01/23 Shira Miller, CharlineD [address] [place] [phone] Pharmacist Internal Medicine 06/02/23 documented as of this encounter
--- OUTSIDE RECORDS SUMMARY | 2025-04-01 10:31 | XMS_ITS | Clinical Summary ---
Author Organization [employer] Address [address] [facility] [address] [place] [address] Care Team Providers Care Manager Testing Name Role Phone Suzan Hunter DO Primary Care Provider Shira Miller PharmD Unavailable [phone] Allergies No known active allergies Medications Cranberry 250 MG capsule Take 1 tablet by mouth Once daily. Active Diclofenac Sodium 1 % gel Apply 2 g topically if needed in the morning and at bedtime (pain). 150 g 3 023 Active Gas Relief Extra Strength 125 MG chewable tabletIndication s:Bloating CHEW AND SWALLOW 1 TABLET BY MOUTH FOUR TIMES DAILY NEEDED FOR GAS 60 tablet 3 023 Active Blood Glucose Monitoring Suppl (ONE TOUCH ULTRA 2) w/Device kitIndications:T ype 2 diabetes mellitus without complication, without long-term current use of insulin ([facility]) 1 each 2 times daily. 1 kit 023 Active amLODIPine (Norvasc) 10 MG tabletIndication s:Essential hypertension Take 1 tablet (10 mg) by mouth Once per day. 90 tablet 3 024 Active metFORMIN (Glucophage) 500 MG tabletIndication s:Type 2 diabetes mellitus without complication, without long-term current use of insulin (CMS/HCC) TAKE 2 TABLETS BY MOUTH TWICE DAILY WITH BREAKFAST AND WITH DINNER 360 tablet 3 024 Active baclofen (Lioresal) 10 MG tablet TAKE 1 TABLET BY MOUTH THREE TIMES DAILY NEEDED FOR MUSCLE SPASMS 60 tablet 1 024 Active lansoprazole (Prevacid) [address] capsuleIndicatio ns:Chronic GERD TAKE 1 CAPSULE BY MOUTH EVERY MORNING BEFORE A MEAL 90 capsule Active metoprolol succinate XL (Toprol-XL) 200 MG 24 hr tabletIndication s:Essential hypertension TAKE 1 TABLET BY MOUTH EVERY MORNING 90 tablet Active tamsulosin (Flomax) 0.4 MG 24 hr capsuleIndicatio ns:Weak urinary stream TAKE 1 CAPSULE BY MOUTH EVERY EVENING 90 capsule Active OneTouch Verio test stripIndications :Type 2 diabetes mellitus without complication, without long-term current use of insulin ([facility]) TEST BLOOD SUGAR TWICE DAILY 100 strip Active Lancets (OneTouch Delica Plus [id number]) miscIndications: Type 2 diabetes mellitus without complication, without long-term current use of insulin ([facility]) TEST BLOOD SUGAR TWICE DAILY 100 each 5 Active fluticasone (Flonase) 50 MCG/ACT nasal spray Administer 1-2 sprays into each nostril Once per day. Shake gently. Before first use, prime pump. After use, clean tip and replace cap. 16 g 2025 Active Combivent Respimat 20-100 MCG/ACT inhalerIndicatio ns:Chronic obstructive pulmonary disease, unspecified COPD type ([facility]) INHALE 1 PUFF 4 TIMES A DAY, MAY TAKE ADDITIONAL PUFFS NEEDED. (MAX OF 6 PUFFS PER DAY) 4 g 025 Active famotidine (Pepcid) 20 MG tabletIndication s:Chronic GERD TAKE 1 TABLET BY MOUTH EVERY MORNING 90 tablet 025 Active acetaminophen (Tylenol 8 Hour) 650 MG ER tablet Take 1 tablet (650 mg) by mouth every 8 (eight) hours if needed for mild pain. Do not crush, chew, or split. 60 tablet 025 Active Kerendia 20 MG tabletIndication s:Type 2 diabetes mellitus without complication, without long-term current use of insulin ([facility]),Stage 3a chronic kidney disease ([facility]) TAKE 1 TABLET BY MOUTH EVERY DAY 30 tablet 2 025 Active atorvastatin (Lipitor) 40 MG tablet TAKE 1 TABLET BY MOUTH EVERY EVENING 90 tablet 3 025 Active levothyroxine (Synthroid, Levoxyl) 75 MCG tablet Take 1 tablet (75 mcg) by mouth in the morning. 90 tablet 2 Active sertraline (Zoloft) 25 MG tabletIndication s:Anxiety Take 1 tablet (25 mg) by mouth Once per day. 90 tablet 3 025 2025 Active hydrOXYzine pamoate (Vistaril) 25 MG capsuleIndicatio ns:Anxiety TAKE 1 CAPSULE BY MOUTH TWICE DAILY PRN (6 HOURS APART) AND TAKE 2 CAPSULE BY MOUTH AT BEDTIME 120 capsule 3 025 Active chlorthalidone (Hygroton) 25 MG tablet TAKE 1 TABLET BY MOUTH EVERY MORNING 90 tablet 3 Active chlorthalidone (Hygroton) 25 MG tablet Take 1 tablet (25 mg) by mouth in the morning. 90 tablet 3 Active Mounjaro 5 MG/0.5ML solution auto-injectorInd ications:Type 2 diabetes mellitus without complications ([facility]) INJECT ONE PEN (=5MG) SUBCUTANEOUSLY ONCE A WEEK DIRECTED 2 mL Active albuterol 108 (90 Base) MCG/ACT inhaler INHALE 2 PUFFS BY MOUTH EVERY 4 TO 6 HOURS NEEDED FOR WHEEZING OR SHORTNESS OF BREATH 8.5 g Active Viagra 100 MG tablet TAKE 1 TABLET 1 HOUR BEFORE SEXUAL RELATIONS ONCE DAILY NEEDED. 10 tablet 1 025 Active glipiZIDE (Glucotrol) 5 MG tabletIndication s:Type 2 diabetes mellitus without complication, without long-term current use of insulin ([facility]) TAKE 1 TABLET BY MOUTH TWICE DAILY IN THE MORNING AND IN THE EVENING BEFORE MEALS 60 tablet 11 025 Active melatonin 5 MG tabletIndication s:Insomnia, unspecified type TAKE 1 TO 2 TABLETS BY MOUTH AT BEDTIME NEEDED FOR SLEEP 60 tablet 3 025 Active olmesartan (BENIcar) 40 MG tabletIndication s:Type 2 diabetes mellitus without complication, without long-term current use of insulin ([facility]),Essent ial hypertension TAKE 1 TABLET BY MOUTH EVERY MORNING 30 tablet 2 025 Active oxyCODONE (Roxicodone) 5 MG immediate release tabletIndication s:Pain in unspecified knee TAKE 1 TABLET BY MOUTH EVERY 8 HOURS NEEDED FOR SEVERE PAIN 84 tablet Active clotrimazole-bet amethasone (Lotrisone) creamIndications :Skin breakdown APPLY 1 GRAM TOPICALLY TO AFFECTED AREA(S) TWICE DAILY NEEDED 45 g 025 Active glipiZIDE (Glucotrol) 5 MG tabletIndication s:Type 2 diabetes mellitus without complication, without long-term current use of insulin ([facility]) Take 1 tablet (5 mg) by mouth before breakfast and before evening meal. 60 tablet 11 024 2024 Discontinued Mounjaro 5 MG/0.5ML solution auto-injector 024 2024 Discontinued melatonin 5 MG tabletIndication s:Insomnia, unspecified type TAKE 1 TO 2 TABLETS BY MOUTH AT BEDTIME NEEDED FOR SLEEP 60 tablet 3 025 2024 Discontinued albuterol 108 (90 Base) MCG/ACT inhaler INHALE 2 PUFFS BY MOUTH EVERY 4 TO 6 HOURS NEEDED 8.5 g 3 025 2024 Discontinued clotrimazole-bet amethasone (Lotrisone) creamIndications :Skin breakdown APPLY 1 GRAM TOPICALLY TO THE AFFECTED AREA(S) TWICE DAILY NEEDED 45 g 025 2024 Discontinued olmesartan (BENIcar) 40 MG tabletIndication s:Type 2 diabetes mellitus without complication, without long-term current use of insulin ([facility]),Essent ial hypertension TAKE 1 TABLET BY MOUTH EVERY MORNING 30 tablet 2 025 2024 Discontinued Viagra 100 MG tablet TAKE 1 TABLET 1 HOUR BEFORE SEXUAL RELATIONS ONCE DAILY NEEDED. 10 tablet 1 025 2024 Discontinued oxyCODONE (Roxicodone) 5 MG immediate release tabletIndication s:Pain in unspecified knee TAKE 1 TABLET BY MOUTH EVERY 8 HOURS NEEDED FOR SEVERE PAIN 84 tablet 025 2024 Discontinued Active Problems Problem Noted Date Diagnosed Date Long-term current use of opiate analgesic 2024 Urgency of urination 10/16/2024 Assessment & Plan (10/16/2024 1:34 PM EDT): 64 yr old diabetic male with c/o urgency, lower abdominal discomfort, reports frequent UTIs. Last Urine Cx of record back in 06/2024 UA today positive for TRACE leuks Likely early UTI, given the fact that he is diabetic I will go ahead and start empiric treatment with . Pt is not sexually active for > 9 yrs Bactrim DS BID x 7 days Urine sent for Culture Pt instructed to call or come back if symptoms do not improve or worsen Multiple joint pain 10/14/2023 Assessment & Plan (10/14/2023 2:38 PM EDT): Probable OA -check ESR, CRP, LATISHA, and RF as not yet done -re-referred for wrist and knee XR -re-referred for L-spine XR -encouraged standing doses tylenol -encouraged baclofen prn -encouraged diclofenac gel -cont tramadol prn severe pain -consider trial gabapentin -referred to ortho for knee pain eval Fatigue 10/14/2023 Assessment & Plan (10/14/2023 2:40 PM EDT): Exertional fatigue -CBC and TFTs stable JAN 2023 -awaiting exercise stress testing -f/u with cardiology as scheduled -advised go to ED if sx change or worsen Sleep-disordered breathing 10/14/2023 Assessment & Plan (10/14/2023 2:41 PM EDT): With heavy snoring -review sleep study next visit Periodontal disease 08/31/2023 Hypothyroidism (acquired) 08/27/2022 Assessment & Plan (10/14/2023 2:34 PM EDT): -TFTs nml APR 2023 -cont synthroid daily Chronic obstructive pulmonary disease 08/27/2022 Assessment & Plan (08/27/2022 3:00 PM EST): Sx improved -cont combivent daily -cont albuterol prn Anxiety 08/27/2022 Assessment & Plan (10/14/2023 2:34 PM EDT): -he denies any SI/HI -he has the number for crisis -cont low-dose zoloft daily -cont vistaril BID prn -he declines referral to therapist Assessment & Plan (08/27/2022 3:01 PM EST): With worsening sxs ISO bereavement -trial melatonin nightly to help w/ sleep -he declines meeting w/ [facility] clinician today -he denies any SI/HI -he has the number for crisis -cont vistaril BID prn -he declines referral to therapist Anemia 08/27/2022 Assessment & Plan (10/14/2023 2:37 PM EDT): H/H stable JUL 2022 -iron studies nml APR 2023 -colonoscopy nml JUL 2012, re-referred for repeat Assessment & Plan (08/27/2022 3:01 PM EST): Slight drop in hgb -repeat CBC w/ iron studies -colonoscopy nml JUL 2012 Healthcare maintenance 08/27/2022 Assessment & Plan (10/14/2023 2:44 PM EDT): -s/p flu vaccine APR 2023 -encouraged COVID vaccine -s/p RSV vaccine JUN 2023 -s/p Tdap November 2013 -s/p pneumovax OCT 2007 -s/p PCV20 AUG 2022 -s/p Shingrix OCT 2021 [place] [facility] [place]re-[place] for repeat -T-spot negative FEB 2015 -Hep A immune -STI/HIV screening neg MAR 2020 -hx of latent syphilis, s/p bicillin x 3 doses APR 2020 Assessment & Plan (08/27/2022 3:01 PM EST): -s/p flu vaccine Jul 2019->repeat scheduled -s/p COVID vaccine SEP 2020+booster scheduled -s/p Tdap November 2013 -s/p pneumovax October 2007 -Shingrix prior to next visit -[place]oscopy n[place] JUL 2012 [place] [facility] [place]T-spot negative February 2015 -Hep A immune -STI/HIV screening neg MAR 2020 -hx of latent syphilis, s/p bicillin x 3 doses APR 2020 History of positive PPD 08/27/2022 Chronic kidney disease (CKD), stage III (moderat e) 08/27/2022 Assessment & Plan (10/14/2023 2:36 PM EDT): Slight bump Cr/GFR SEP 2023 -optimal BP/BS control -avoid NSAIDs -continue kerendia daily -will refer to renal if renal function worsens Type 2 diabetes mellitus 04/10/2012 Assessment & Plan (10/14/2023 2:33 PM EDT): A1c at-goal -continue metformin BID -continue glipizide BID -continue mounjaro weekly -cont ARB and lipitor daily -f/u with [facility] pharmacist next mos scheduled -s/p optho eval SEP 2022 at [facility] -foot exam next visit* Assessment & Plan (08/27/2022 2:59 PM EST): A1c unchanged -Cont metformin BID -Cont glipizide with meals -Cont lisinopril and lipitor daily -referred to [facility] for eval -s/p optho eval Jul 2017 at [facility]-> referred for eval -Foot exam next visit* Chronic GERD 04/10/2012 Assessment & Plan (10/14/2023 2:36 PM EDT): -cont prevacid daily Assessment & Plan (08/27/2022 3:00 PM EST): significantly improved -cont prevacid daily -cont tums prn Hyperlipidemia 04/10/2012 Assessment & Plan (10/14/2023 2:34 PM EDT): LDL at goal APR 2023 -cont lipitor nightly Assessment & Plan (08/27/2022 3:00 PM EST): LDL at goal JAN 2021 -cont lipitor nightly -lipids prior to next visit Essential hypertension 04/10/2012 Assessment & Plan (10/14/2023 2:34 PM EDT): BP controlled -cont current med regimen -cont home BP monitoring -f/u with 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 05/04/20 16 08/27/2022 Assessment & Plan (08/27/2022 3:00 PM EST): -TFT's nml JAN 2021 -cont synthroid daily [place]: positive 04/10/2012 08/27/2022 Encounters Date Type Department Care Team Description 03/27/2025 Refill [facility] [address] [place] [address] Suzan Hunter, DO Skin breakdown 03/26/2025 Refill [facility] [address] [place], [place] [id number] Suzan Hunter, Pain in unspecified knee 03/21/2025 Refill [facility] [address] [place] [address] Suzan Hunter, Type 2 diabetes mellitus without complication, without long-term current use of insulin ([facility]); Insomnia, unspecified type; Essential hypertension 03/11/2025 Refill [facility] [address] [place] [address] Suzan Hunter, Type 2 diabetes mellitus without complications (CMS/HCC) 03/07/2025 Refill [facility] [address] [place], [place] [id number] Suzan Hunter, 02/28/2025 Refill [facility] [address] [place] [address] Suzan Hunter, DO 02/26/2025 Refill [facility] [address] [facility] [place] [address] Suzan Hunter, DO 02/25/2025 Refill [facility] [address] [place] [address] Suzan Hunter, DO 02/20/2025 Refill [facility] [address] [place] [address] Suzan Hunter, DO Pain in unspecified knee 01/31/2025 9:30 AM EDT Clinical Support [facility] [address] [place] [address] Grace Hidalgo RN Long-term current use of opiate analgesic (Primary Dx) 01/31/2025 Refill [facility] [address] [place] [address] Suzan Hunter, Anxiety 01/31/2025 Telephone [facility] [address] [place] [address] Grace Hidalgo, JING MANAGER DOCUMENT CONTROL Renewal today 01/31/2025 Travel 01/29/2025 Refill [facility] [address] [place] [address] Suzan Hunter, DO 01/29/2025 Refill [facility] [address] [place] [address] Suzan Hunter, 01/21/2025 Refill [facility] [address] [place] [address] Suzan Hunter, Pain in unspecified knee (Primary Dx) 01/20/2025 Refill [facility] [address] [place] [address] Suzan Hunter, Type 2 diabetes mellitus without complication, without long-term current use of insulin ([facility]); Stage 3a chronic kidney disease ([facility]) 01/04/2025 9:00 AM EDT Office Visit [address] [address] Suzan Hunter DO Type 2 diabetes mellitus without complication, without long-term current use of insulin ([facility]) (Primary Dx); Essential hypertension; Other hyperlipidemia; Hypothyroidism (acquired); Anxiety; Stage 3a chronic kidney disease ([facility]); Chronic obstructive pulmonary disease, unspecified COPD type ([facility]); Chronic GERD; Anemia, unspecified type; Multiple joint pain; Chronic bilateral low back pain without sciatica; Sleep-disordered breathing; Positive colorectal cancer screening using Cologuard test; Dizziness; Impacted cerumen of left ear; Abnormal echocardiogram; Healthcare maintenance; Screening for colon cancer 01/04/2025 Travel 01/03/[address] [address] Suzan Hunter DO Appointment Request; Pt cancelled MANAGER DOCUMENT CONTROL Renewal sameday today 01/02/[address] [address] Suzan Hunter DO Chart Prep 12/31/[address] [address] Suzan Hunter DO Recall Appointment 12/31/2024 Travel from Last 3 Months Immunizations Immunization Administration Dates Next Due Hep B, adult 02/05/2008,07/06/2007,06/05/2007 Influenza injectable quadriv alent IIV4 with preservative 08/04/2016,04/23/2015 Influenza injectable quadriv alent preservative free 05/24/2023,08/27/2022,06/26/2021,05/01,08/21/2019,05/05/2018 Influenza, IIV3, injectable 04/01/2014, 1 Influenza, Split (incl. vandana fied surface antigen) 04/10/2012 Influenza, seasonal, injecta ble, preservative free 07/13/2024 Pfizer Covid-19 Vaccine 12+ Bivalent 12/06/2022 Pneumococcal Conjugate PCV 20 08/25/2022 Pneumococcal Polysaccharide PPSV23 11/20/2007 RSV Bivalent 07/11/2023 Tdap 03/08/2024,11/22/2013 Zoster, Recombinant 11/18/2021,09/16/2021 Family History Medical History Relation Name Comments Diabetes Father Hypertension Father Hypertension Mother Relation Name Status Comments Father Mother Social History Tobacco Use Types Packs/Day Years Used Date Smoking Tobacco: Former Cigarettes Passive Smoke Exposure: Past Tobacco Cessation:Counseling Given: Not Answered Alcohol Use Standard Drinks/Week Comments Never 0 (1 standard drink = 0.6 oz pur e alcohol) Depression Answer Date Recorded Patient Health Questionnaire-9 Score 0 01/04/2025 Patient Health Questionnaire-9 Score 0 01/04/2025 Last PHQ-9: Questionnaire Data Not on file 0 01/04/2025 Housing Stability Answer Date Recorded What is your housing situation today? I have keke brennan 07/13/[address] you li ve. Do you have problems with any of the following? None of the above 07/13/2024 Food Insecurity Answer Date Recorded Within the past 12 months, y ou worried that your food would run out before you got money to buy more: Never True 07/13/2024 Within the past 12 months,th e food you bought just didn't last and you didn't have enough money to get more: Never True Transportation Answer Date Recorded In the past 12 months, has l ack of transportation kept you from medical appts, meetings, work or from getting things needed for daily living? No 07/13/2024 Utilities Answer Date Recorded In the past 12 months, has t he electric, gas, oil or water company threatened to shut off services in your home? No 07/13/2024 Depression Answer Date Recorded Patient Health Questionnaire-2 Score 0 01/04/2025 Internet Access Answer Date Recorded Internet Access Q1 No 07/13/2024 Internet Access Q2 Not on file 07/13/2024 Sex and Gender Information Value Date Recorded Sex Assigned at Male 05/24/2022 10:18 AM EDT Legal Sex Male 10:18 AM EDT Gender Identity Male 05/24/2022 10:18 AM EDT Sexual Orientation Straight 05/24/2022 10 :18 AM EDT Last Filed Vital Signs Vital Sign Reading Time Taken Comments Blood Pressure 110/72 01/04/2025 8:55 AM EDT Pulse 84 01/04/2025 8:55 AM EDT Temperature 36.3 C (97.4 F) 01/04/2025 8:55 AM EDT Respiratory Rate 20 01/04/2025 8:55 AM EDT Oxygen Saturation 100% 10/16/2024 1:11 PM EDT Inhaled Oxygen Concentration - - Weight 82.2 kg (181 lb 3.2 oz) 01/04/2025 8:55 A M EDT Height 175.3 cm (5' 9 ) 01/04/2025 8:55 AM EDT Body Mass Index 26.76 01/04/2025 8:55 AM EDT Plan of Treatment Upcoming Encounters Date Type Department Care Team (Late st Contact Info) Description 08/05/2025 10:00 AM EST Clinical Support [facility] [address] [place] [address] [phone] Grace Hidalgo, RN Health Maintenance Due Date Last Done Comments CT Colonography 1962 Colonoscopy 1962 FIT 1962 Sigmoidoscopy 1962 Diabetes: Foot Exam 02/17/1972 Dental Oral Exam 05/27/2022 11/23/2021, , 07/29/2017, Additional history exists Dental Prophylaxis 05/27/2022 11/23/2021, 1 09/09/2018, 01/05/2019, Additional history exists Dental X-Ray: Bitewings 11/24/2022 11/24/19 22, 01/05/2019, 07/29/2017, Additional history exists Diabetes: Urine Protein Screening 05/19/2024 05/19/2023, 08/20/2022, 01/28/2021, Additional history exists Lipid Panel 05/19/2024 05/19/2023, 08/20/2022 FOBT 06/09/2024 06/09/2023 Dental X-Ray: Full Mouth 11/24/2024 11/23/2021, 02/22 COVID-19 Vaccine ( season) 2025 12/06/2022, 06/26/2021, 09/26/2020, Additional history exists Influenza Vaccine (#1) 2025 , 05/24/2023, 08/27/2022, Additional history exists Diabetes: Hemoglobin A1C 07/06/2025 025, 07/13/2024, 03/08/2024, Additional history exists SDOH Screening 07/13/2025 07/13/2024 Alcohol/Substance Use Screening 01/04/2026 01/04/2025 Depression Screening 01/04/2026 01/04/2025, 01/05/20 Disability Screening 01/04/2026 01/04/2025 Tobacco Screening 01/04/2026 01/04/2025 Colorectal Cancer Screening 06/09/2026 FIT DNA/Cologuard 06/09/2026 06/09/2023 Eye Exam 07/11/2026 07/11/2024, 06/24, 07/11/2024, Additional history exists DTaP/Tdap/Td Vaccines (3 - Td or Tdap) 03/08/2034 03/08/2024, 11/22/2013 Hepatitis B Vaccines Completed 02/05/2008, 07/06/2007, 06/05/2007 HIV Screening Completed 04/07/2020 Hepatitis C Screening Completed 04/07/2020 Zoster Vaccines Completed 11/18/2021, 09/16/2021 Pneumococcal Vaccine: 50+ Years Completed 08/25/2022, 11/20/2007 RSV Patients and Patients Aged 60 years or older Completed 07/11/2023 HIB Vaccines Aged Out No longer eligi ble based on patient's age to complete this topic HPV Vaccines Aged Out No longer eligi ble based on patient's age to complete this topic Hepatitis A Vaccines Aged Out No long er eligible based on patient's age to complete this topic IPV Vaccines Aged Out No longer eligi ble based on patient's age to complete this topic Meningococcal B Vaccine Aged Out No l onger eligible based on patient's age to complete this topic Meningococcal Vaccine Aged Out No [place] ivan eligible based on patient's age to complete this topic RSV under 20 months Aged Out No longe r eligible based on patient's age to complete this topic Rotavirus Vaccines Aged Out No longer eligible based on patient's age to complete this topic Goals Goal Patient Goal Type Associated Problems Recent Progress Patient-Stated? Author Blood Pressure < 140/90 Blood Pressure 110/72(2024 8:55 AM EDT) No Unruly Fabian PharmD Record your blood pressure periodically. Blood Pressure No change(2023 11:04 AM EST) No Shira Miller PharmD Hemoglobin A1c < 7 Result Component 6.3( 8:57 AM EDT) No Unruly Fabian PharmD Record your blood sugar as directed Result Component Improving( 11:04 AM EST) No Shira Miller PharmD Procedures Procedure Name Priority Date/Time Associated Diagnosis Comments POCT SEVERINO-14 URINE DRUG SCREEN Routine 01/31/2025 9:46 AM EDT Long-term current use of opiate analgesic POCT GLYCATED HEMOGLOBIN, TOTAL Routine 01/04/2025 8:57 AM EDT Type 2 diabetes mellitus without complication, without long-term current use of insulin ([facility]) POCT GLUCOSE Routine 01/04/2025 8:57 AM EDT Type 2 diabetes mellitus without complication, without long-term current use of insulin ([facility]) ALBUMIN, RANDOM URINE W/CREATININE Routine 05/19/2023 8:21 AM EDT LIPID PANEL, STANDARD Routine 05/19/2023 8:21 AM EDT Type 2 diabetes mellitus without complication, without long-term current use of insulin ([facility]) PROPHYLAXIS - ADULT Routine 11/23/2021 1 2:00 AM EDT INTRAORAL - COMPLETE SERIES OF RADIOGRAPHIC IMAGES Routine 11/23/2021 12:00 AM EDT PERIODIC ORAL EVALUATION - ESTABLISHED PATIENT Routine 11/23/2021 12:00 AM EDT ZZZ HISTORICAL HEPATITIS C ANTIBODY RFLX Routine 04/07/2020 9:55 AM EDT ZZZ HISTORICAL HIV AB/AG Routine 04/07/2020 9:55 AM EDT from Last 3 Months or Most Recently Relevant to Health Maintenance Results * POCT SEVERINO-14 Urine Drug Screen (01/31/2025 9:46 AM EDT) THC Negative Negative Cocaine Screen, Urine Negative Negative Opiate Screen, Urine Negative Negative Methamphetamine Screen Urine Negative Negative Amphetamine Screen, Urine Negative Negative Benzodiazepines Screen, Urine Negative Negative Barbiturate Screen, Urine Negative Negative Methadone Screen, Urine Negative Negative Buprenophine Screen, Urine Negative Negative TCA, Urine Negative Negative MDMA Urine Negative Negative ng/mL Oxycodone Screen, Urine Positive Negative Phencyclidine (PCP), Urine Negative Negative Propoxyphene, Urine Negative Negative Fentanyl, Urine Negative Negative Urine Urine specimen obtained by clean catch procedure / Unknown 01/31/2025 9:46 AM EDT Narrative Grace Hidalgo RN - 01/31/2025 9:46 AM EDT UTOX cup Lot#[id number] Exp. 04/30/26 Internal Pass Control Suzan Hunter DO POINT OF CARE TEST ENTER/KYLEE T ORDERABLES Final Result * (ABNORMAL) POCT HGB A1C (01/04/2025 8:57 AM EDT) Pathologist [facility] Hemoglobin A1C 6.3(A) 4.0 - 6.0 % Blood 01/04/2025 8:57 AM EDT Suzan Hunter DO POINT OF CARE TEST ENTER/KYLEE T ORDERABLES Final Result * POCT Glucose (01/04/2025 8:57 AM EDT) Pathologist [facility] Glucose Blood, POC 174 60 - 200 mg/dL Blood Capillary blood specimen / Unknown 01/04/2025 8:57 AM EDT Suzan Hunter DO POINT OF CARE TEST ENTER/KYLEE T ORDERABLES Final Result * (ABNORMAL) Albumin, Random Urine W/Creatinine (05/19/2023 8:21 AM EDT) Pathologist [facility] Creatinine, Urine 50.42 mg/dL [facility] Microalbumin Urine 38.0 mg/L [facility] Microalbum Creatinine Ratio Ur 75.3(H) <30 ug/mg cr [facility] Comment:Albumin/Creatinine R atio Reference Ranges: Normal: < 30 ug/mg creatinine Microalbuminuria: 30 - 300 ug/mg creatinineClinical Albuminuria: > 300 ug/mg creatinine 05/19/2023 8:21 AM EDT 05/19/2023 11:44 AM EDT Suzan Hunter DO LAB URINE ORDERABLES Final R esult Performing Organization Address [facility] de Phone Number [facility] [address] [place] [address] [phone] * (ABNORMAL) Lipid Panel, Standard (05/19/2023 8:21 AM EDT) Triglycerides 141 <150 mg/dL [facility] Comment:Desirable Triglyceri de: less than 150 mg/dLBorderline High Triglyceride 150-199 mg/dLHigh Triglyceride: 200-499 mg/dLVery High Triglyceride: greater than or equal to 5OO mg/dL Cholesterol 142 <200 mg/dL [facility] Comment:Desirable Cholestero l: less than 200 mg/dLBorderline High Cholesterol: 200-239 mg/dLHigh Cholesterol: greater than 239 mg/dL LDL Cholesterol Calculated 76 <100 mg/dL [facility] Comment:Desirable LDL: less than 100 mg/dLNear Optimal/Above Optimal LDL: 110- 129 mg/dLBorderline High LDL: 130-159 mg/dLHigh LDL: 160-189 mg/dLVery High LDL: greater than or equal to 190 mg/dL HDL Cholesterol 38(L) >40 mg/dL [facility] Comment:Desirable HDL: great er than 40 mg/dL Note: This HDL assay may give artificially low results in patients with liver disease. Blood Venous blood specimen / Unknown 05/19/2023 8:21 AM EDT 05/19/2023 11:40 AM EDT us Suzan Hunter DO LAB BLOOD ORDERABLES Final R esult [facility] [address] [place] [address] [phone] * HEPATITIS C ANTIBODY RFLX (04/07/2020 9:55 AM EDT) Pathologist [facility] HEPATITIS C ANTIBODY [facility] Comment: Antibodies to HCV not detected; does not exclude early acute HCV infection. 04/07/2020 9:55 AM EDT Suzan Elsa DO HISTORICAL/NON ORDERABLE LAB S Final Result Performing Organization Address [facility] Co de Phone Number [facility] [address] * HIV AB/AG (04/07/2020 9:55 AM EDT) Pathologist [facility] HIV AG/AB [facility]IVE [facility] Comment: HIV-1 p24 Ag and/or HIV-1/HIV-2 Ab not detected. A test result that is nonreactive does not exclude the possibility of exposure to or infection with HIV-1 and/or HIV-2. Nonreactive results in this assay for individuals with prior exposure to HIV-1 and/or HIV-2 may be due to antigen and antibody levels that are below the limit of detection of this assay. The [employer] HIV Ag/Ab Combo assay result and supplemental assay results should be interpreted in conjunction with the patient's clinical presentation, history and other laboratory results. If the results are inconsistent with clinical evidence, additional testing is suggested to confirm the result. 04/07/2020 9:55 AM EDT us Suzan Hunter DO HISTORICAL/NON ORDERABLE LAB S Final Result Performing Organization Address [facility] Co de Phone Number [facility] [address] from Last 3 Months or Most Recently Relevant to Health Maintenance Insurance [facility] DUAL COMPLETE [facility] STANDARD [facility] - [facility] Care Teams Manager Testing Relationship Specialty Start Date End Date Suzan Hunter DO [address] [place] [address] PCP - General Family Medicine 12/11/19 Shira Miller, Hector [address] [place] [address] Pharmacist Internal Medicine 06/02/23
--- OUTSIDE RECORDS SUMMARY | 2025-04-01 10:31 | XMS_ITS | Encounter Summary ---
Author Organization [facility] Address [address] [place] [address] [address] [place] [address] Care Team Providers Care Organic Chemistry Professor Name Role Phone Suzan Hunter DO Primary Care Provider [phone] Unruly Fabian PharmD Unavailable Unavail able Shira Miller PharmD Unavailable Encounter Details Date Type Department Care Team (Latest Contact Info) Description 07/09/2019 Abstract [facility] CONVERSIONS Dental, Provider, DDS Social History Tobacco [...] Description 08/05/2025 10:00 AM EST Clinical Support [facility] [address] [place] [address] Grace Hidaglo, JING documented as of this encounter Visit Diagnoses Not on filedocumented in this encounter Care Teams Organic Chemistry Professor Relationship Specialty Start Date End Date Suzan Hunter DO [address] [place] [address] PCP - General Family Medicine 12/11/19 Unruly Fabian, PharmD [address] [place] [address] Pharmacist Internal Medicine 08/20/22 06/01/23 Shira Miller, PharmD [address] [place] [phone] Pharmacist Internal Medicine 06/02/23 documented as of this encounter
--- OUTSIDE RECORDS SUMMARY | 2025-04-01 10:31 | XMS_ITS | Encounter Summary ---
Author Organization [employer] Address [address] [place] [address] Care Team Providers Care Senior Nuclear Medicine Technologist Name Role Phone Suzan Hunter DO Primary Care Provider Shira Miller PharmD Unavailable [phone] Reason for Visit * Reason Comments Med Refill Encounter Details Date Type Department Care Team (Late st Contact Info) Description 11/19/2024 Refill [facility] [address] [place], [place] [phone] Suzan Hunter DO [address] [place] [address] Pain in unspecified knee Social History Tobacco Use Types Packs/Day Years Used Date Smoking Tobacco: Former Cigarettes Passive Smoke Exposure: Past Alcohol Use Standard Drinks/Week Comments Never 0 (1 standard drink = 0.6 oz pur e alcohol) Depression Answer Date Recorded Patient Health Questionnaire-9 Score 0 05/24/2023 Patient Health Questionnaire-9 Score 0 05/24/2023 Last PHQ-9: Questionnaire Data Not on file 1 Housing Stability Answer Date Recorded What is [...] Date Recorded Patient Health Questionnaire-2 Score 0 07/13/2024 Internet Access Answer Date Recorded Internet Access [...] Description 08/05/2025 10:00 AM EST Clinical Support [facility] [address] [place] [address] Grace Hidalgo RN documented as of this encounter Goals Goal Patient Goal Type Associated Problems Recent Progress Patient-Stated? Author Blood Pressure < 140/90 Blood Pressure 110/72(2024 8:55 AM EDT) No Dellogono Unruly, PharmD Record your blood pressure periodically. Blood Pressure No change(2023 11:04 AM EST) No Puia, Shira, PharmD Hemoglobin A1c < 7 Result Component 6.3( 8:57 AM EDT) No Dellogono, Unruly, PharmD Record your blood sugar as directed Result Component Improving( 11:04 AM EST) No Puia, Shira, PharmD documented as of this encounter Visit Diagnoses Diagnosis Pain in unspecified knee documented in this encounter Additional Health Concerns Assessment Noted Time PHQ-9 Depression Total Score: 0 05/24/20 23 9:17 AM EDT documented as of this encounter Care Teams Senior Nuclear Medicine Technologist Relationship Specialty Start Date End Date Suzan Hunter DO [address] [place] [address] PCP - General Family Medicine 12/11/19 Shira Miller, CharlineD [address] [place] [phone] Pharmacist Internal Medicine 06/02/23 documented as of this encounter
--- OUTSIDE RECORDS SUMMARY | 2025-04-01 10:31 | XMS_ITS | Encounter Summary ---
Author Organization [employer] Address [address] [facility] 7t [place] [address] Care Team Providers Care Babysitter Name Role Phone Suzan Hunter DO Primary Care Provider [phone] DelUnruly thomson PharmD Unavailable Unavail able Shira Miller PharmD Unavailable Reason for Visit * Reason Comments Med Refill Encounter Details Date Type Department Care Team (Late st Contact Info) Description 02/22/2023 Refill [facility] [address] [place] [address] Suzan Hunter DO [address] [place], [place] [phone] Pain in unspecified knee Social History Tobacco [...] Description 08/05/2025 10:00 AM EST Clinical Support [facility] [address] [place] [address] Grace Hidalgo RN documented as of this encounter Goals Goal Patient Goal Type Associated Problems Recent Progress Patient-Stated? Author Blood Pressure < 140/90 Blood Pressure 110/72(2024 8:55 AM EDT) No Unruly Fabian PharmD Hemoglobin A1c < 7 Result Component 6.3( 8:57 AM EDT) No Unruly Fabian PharmD documented as of this encounter Visit Diagnoses Diagnosis Pain in unspecified knee documented in this encounter Additional Health Concerns Assessment Noted Time PHQ-9 Depression Total Score: 0 08/27/19 9:13 AM EST documented as of this encounter Care Teams Babysitter Relationship Specialty Start Date End Date Suzan Hunter DO [address] [place] [address] PCP - General Family Medicine 12/11/19 Unruly Fabian, CharlineD [address] [place] [phone] Pharmacist Internal Medicine 08/20/22 06/01/23 Shira Miller PharmD [address] [place] [address] Pharmacist Internal Medicine 06/02/23 documented as of this encounter
--- OUTSIDE RECORDS SUMMARY | 2025-04-01 10:31 | XMS_ITS | Encounter Summary ---
Author Organization [employer] Address [address] [facility] 7t [place] [address] Care Team Providers Care Lens Dotter Name Role Phone Suzan Hunter DO Primary Care Provider [phone] Unruly Fabian PharmD Unavailable Unavail able Shira Miller PharmD Unavailable [phone] Encounter Details Date Type Department Care Team (Late st Contact Info) Description 07/12/2022 Orders Only [facility] [address] [place] [address] Andria Robb LPN Social History Tobacco Use Types Packs/Day Years [...] Description 08/05/2025 10:00 AM EST Clinical Support [facility] [address] [place] [address] Grace Hidalgo, JING documented as of this encounter Visit Diagnoses Not on filedocumented in this encounter Care Teams Lens Dotter Relationship Specialty Start Date End Date Suzan Hunter DO [address] [place] [phone] PCP - General Family Medicine 12/11/19 Unruly Fabian, PharmD [address] [place] [phone] Pharmacist Internal Medicine 08/20/22 06/01/23 Shira Miller, CharlineD [address] [place] [address] Pharmacist Internal Medicine 06/02/23 documented as of this encounter
--- OUTSIDE RECORDS SUMMARY | 2025-04-01 10:31 | XMS_ITS | Encounter Summary ---
Author Organization [employer] Address [address] [facility] 7t [place] [address] Care Team Providers Care Director Of Curriculum And Instruction Name Role Phone Berenice Hunterfer Primary Care Provider [phone] Shira Miller PharmD Unavailable Reason for Visit * Reason Comments Med Refill Encounter Details Date Type Department Care Team ([facility] st Contact Info) Description 10/08/2023 Refill [facility] [address] [place], [place] [phone] Shira Miller, PharmD [address] [place] [address] Type 2 diabetes mellitus without complication, without long-term current use of insulin ([facility]) Social History Tobacco Use Types Packs/Day Years [...] housing situation today? I have keke brennan 05/18/[address] you li ve. Do you have problems with any of the following? None of the above 05/18/2023 Food Insecurity Answer Date Recorded Within the past 12 months, y ou worried that your food would run out before you got money to buy more: Never True 05/18/2023 Within the past 12 months,th e food you bought just didn't last and you didn't have enough money to get more: Never True Transportation Answer Date Recorded In the past 12 months, has l ack of transportation kept you from medical appts, meetings, work or from getting things needed for daily living? No 05/18/2023 Utilities Answer Date Recorded In the past 12 months, has t he electric, gas, oil or water company threatened to shut off services in your home? No 05/18/2023 Depression Answer Date Recorded Patient Health Questionnaire-2 Score 0 05/24/2023 Sex and Gender Information Value Date Recorded Sex Assigned at Male 05/24/2022 10:18 AM EDT Legal Sex Male 10:18 AM EDT Gender Identity Male 05/24/2022 10:18 AM EDT Sexual Orientation Straight 05/24/2022 10 :18 AM EDT documented as of this encounter Miscellaneous Notes * Telephone Encounter - Shira Miller PharmD - 10/12/2023 11:15 AM EDT Refused. Per updated labs dose increased to 20 mg. Patient, PCP and pharmacy aware. documented in this encounter Plan of Treatment Upcoming Encounters Date Type Department Care Team (Late st Contact Info) Description 08/05/2025 10:00 AM EST Clinical Support [facility] [address] [place] [phone] Grace Hidalgo RN documented as of this [...] 11:04 AM EST) No Shira Miller PharmD documented as of this encounter Visit Diagnoses Diagnosis Type 2 diabetes mellitus without complication, without long-term current use of insulin ([facility]) documented in this encounter Additional Health Concerns Assessment Noted Time PHQ-9 Depression Total Score: 0 05/24/20 23 9:17 AM EDT documented as of this encounter Care Teams Director Of Curriculum And Instruction Relationship Specialty Start Date End Date Suzan Hunter DO [address] [place] [address] PCP - General Family Medicine 12/11/19 Shira Miller PharmD [address] [place] [address] Pharmacist Internal Medicine 06/02/23 documented as of this encounter
--- OUTSIDE RECORDS SUMMARY | 2025-04-01 10:31 | XMS_ITS ---
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 Role Phone Sandip Ayesha Unavailable [phone] EDGAR DAVILA Unavailable [phone] Reason for Referral Not Available Allergies, adverse reactions, alerts No known allergies History of medication use Medication Class Instructions Start Date End Date amLODIPine Besylate 10 mg Tab TAKE 1 TAB LET BY MOUTH EVERY DAY 2022-06-21 2022-12-10 hydroCHLOROthiazide 25 mg Tab TAKE 1 TAB LET BY MOUTH EVERY MORNING 2021-12-24 2022-12-10 Lisinopril 40 mg Tab TAKE 1 TABLET BY MO UTH EVERY MORNING 2022-04-06 2024-03-06 Metoprolol Succinate ER 100 mg Tab ER 24hr TAKE 1 TABLET BY MOUTH 2021-09-24 No Data Available Olmesartan Medoxomil 40 mg Tab TAKE 1 TA BLET BY MOUTH EVERY MORNING 2022-11-11 No Data Available Atorvastatin Calcium 40 mg Tab TAKE 1 TA BLET BY MOUTH AT BEDTIME 2022-02-22 No Data Available glipiZIDE 10 mg Tab TAKE 2 TABLETS BY MO UTH TWICE DAILY, BEFORE BREAKFAST AND BEFORE SUPPER. 2021-08-21 2022-12-10 metFORMIN 500 mg Tab TAKE 2 TABLETS BY M OUTH TWICE DAILY IN THE MORNING AND EVENING WITH BREAKFAST AND WITH DINNER 2021-12-17 No Data Available Trulicity 3 mg/0.5ML Solutio n Pen-injector Subcutaneous INJECT ONE PEN (= 3MG) SUBCUTANEOUSLY ONCE A WEEK DIRECTED 2022-08-20 2024-03-06 Combivent Respimat 20-100 MCG/ACT Aerosol Solution INHALE 1 PUFF 4 TIMES A DAY, MAY TAKE ADDITIONAL PUFFS NEEDED. (MAX OF 6 PUFFS PER DAY) 2022-10-06 No Data Available Albuterol Sulfate HFA 108 (9 0 Base) MCG/ACT Aerosol Solution INHALE 2 PUFFS BY MOUTH EVERY 4 TO 6 HOURS NEEDED 2022-06-08 No Data Available Sertraline 25 mg Tab TAKE 1/2 TABLET BY MOUTH EVERY MORNING 2022-08-27 No Data Available Levothyroxine Sodium 75 MCG Tab TAKE 1 T ABLET BY MOUTH EVERY MORNING 2021-09-25 No Data Available Lansoprazole 30 mg Cap delay ed rel TAKE 1 CAPSULE BY MOUTH EVERY DAY BEFORE A MEAL. 2022-03-22 No Data Available Famotidine 40 mg Tab TAKE 1 TABLET BY MO [facility] AT BEDTIME 2022-04-06 No Data Available Medbox Status USE DIRECTED 2022-10-27 2024-03-06 hydrOXYzine Pamoate 25 mg Cap TAKE 1 CAP FERNANDO BY MOUTH EVERY EVENING (& TAKE 1 CAPSULE TWICE DAILY NEEDED) 2021-11-18 No Data Available MELATONIN 5 MG TABLET TAKE 1 TO 2 TABLET S BY MOUTH EVERY DAY NEEDED FOR SLEEP 2021-11-18 No Data Available Viagra 100 mg Tab TAKE 1 TABLET 1 HOUR BEFORE SEXUAL RELATIONS ONCE DAILY NEEDED. 2022-03-02 2022-12-10 Gas Relief Extra Strength 12 5 mg Tab Chewable CHEW AND SWALLOW 1 TABLET BY MOUTH FOUR TIMES DAILY NEEDED FOR GAS 2022-04-06 No Data Available OneTouch Ultra 2 w/Device Kit TEST BLOOD SUGAR DAILY DIRECTED 2022-05-05 No Data Available OneTouch Delica Plus Lancet3 3G Miscellaneous TEST BLOOD SUGAR ONCE DAILY DIRECTED 2022-05-05 No Data Available Ondansetron 4 mg Tab TAKE [address] [facility] EVERY 4 HOURS NEEDED 2022-12-10 No Data Available OneTouch Verio Strip TEST BLOOD SUGAR ON CE DAILY DIRECTED 2022-05-05 No Data Available Clotrimazole-Betamethasone 1-0.05 % Crm APPLY TO AFFECTED AREA(S) AND SURROUNDING AREA(S) TWICE DAILY IN THE MORNING AND EVENING FOR 2 WEEKS NEEDED 2021-09-28 No Data Available traMADol 50 mg Tab TAKE [address] [facility] EVERY 8 HOURS 2022-07-01 No Data Available amLODIPine Besylate 10 mg Tab TAKE 1 TAB LET BY MOUTH EVERY EVENING 2023-06-02 No Data Available Bisacodyl EC 5 mg Tab delaye d rel TAKE 4 TABLETS BY MOUTH AT NOON THE DAY BEFORE PROCEDURE 2024-01-16 No Data Available Chlorthalidone 25 mg Tab TAKE 1 TABLET B Y MOUTH EVERY MORNING 2023-02-23 No Data Available glipiZIDE 5 mg Tab TAKE 1 TABLET BY [facility] TH TWICE DAILY IN THE MORNING AND IN THE EVENING BEFORE MEALS 2023-08-11 No Data Available Kerendia 20 mg Tab TAKE 1 TABLET BY [facility] TH EVERY DAY 2023-08-11 No Data Available Mounjaro 2.5 mg/0.5ML Soluti on Pen-injector Subcutaneous INJECT ONE PEN 5 SUBCUTANEOUSLY ONCE A WEEK DIRECTED 2023-07-11 No Data Available busPIRone 10 mg Tab 1 tablet orally BID PRN 2024-03-06 No Data Available Tamsulosin 0.4 mg Cap TAKE 1 CAPSULE BY MOUTH EVERY EVENING 2023-08-29 No Data Available PEG 3350 17 GM/SCOOP Powder USE DIREC KELLY PER GI DOCTOR 2024-01-16 No Data Available traMADol 50 mg Tab take 2 tablets, TID as needed for pain 2024-03-06 No Data Available Lidocaine-Prilocaine 2.5-2.5 % Crm APPLY 1 GRAM TOPICALLY TO AFFECTED AREA(S) THREE TIMES DAILY NEEDED FOR PAIN 2024-03-06 No Data Available Zofran 4 MG Take 1 tablet Q 4 hrs prn 2024-03-06 No Data Available Problem List Problem Status Onset Date Resolved Date Synopsis Hyperlipidemia Active 2022-12-04 N/A atorvastat in (Lipitor) 40 MG tabletEncouraged physical activityDiet low in saturated and trans fatHealthy diet, including lots of fruits and vegetables. Insomnia Active 2022-12-04 N/A melatonin 5 MG tablet Mild recurrent major depression Active 2022-12-14 N/A continues sertra line dailyStable. PHQ4=1 Lower back pain Active 2022-12-10 N/A Used to t stuart tramadol Lower back pain does not radiate. Not controlled to satisfactory 01/01. OA. Will ask PCP to refer to ortho for steroid injection Bloating Active 2022-12-04 N/A Bloating and n ausea, simethicone (Mylicon) 125 MG chewable tabletZofran 4 mg as needed, refilled. Workup done in past, likely due to DM. If vomiting, fever, abd pain, call CB right away ED (erectile dysfunction) Active 2022-12-04 N/A not on medicatio n GERD (gastroesophageal reflux disease) Active 2022-12-04 N/A lansoprazole (Pr evacid) [address] capsulefamotidine 40 mg -cont tums prn.Avoid excessive intake of caffeine, and spicy food, work on a healthy weight, and avoid tomato-based food, mint, etc. Hypertension Active 2022-12-04 N/A metoprolol s uccinate XL (Toprol-XL) 100 MG 24 hr tabletamLODIPine (Norvasc) 10 MG tabletchlorthalidone (Hygroton) 25 MG tabletOlmesartan Medoxomil 40 mg.Discussed low-salt dietwill monitor edema and weight, follows cardiologyMonitors BP daily If blood pressure is>170/90 and symptomatic with headache, dizziness, facial flashing, can take amlodipine 5 mg (give 1/2 tablet)*1, recheck BP in 1 hour, rest. If lower 90/50s and dizziness, lay flat, elevate legs over pillows, increase fluids Hypothyroid Active 2022-12-04 N/A levothyroxine (Synthroid, Levoxyl) 75 MCG tabletstable Anxiety Active 2022-12-04 N/A hydrOXYzine pa moate (Vistaril) 25 MG capsuleWith worsening sxs ISO bereavement-he denies any SI/HI-he has the number for crisis-cont vistaril BID prn-he declines referral to therapistOn sertraline 12.5 mg daily (pls call PCP for increase, stated will see PCP soon anyway, will ask) Anxiety not controlled wellTrial of buspar 10 mg bid PRN for break through episodes COPD (chronic obstructive pulmonary disease) Active 2022-12-04 N/A Sx improved-cont combivent daily-cont albuterol prn Con tingency plan:1. Start antibiotic(Azithromycin, doxycycline, or levaquin) 2. Increase Neb treatments/MDI use to q4h x3 days3. Call CB at the first sign of SOB or increased cough and sputum production. 4. Schedule f/u with primary WELLNESS CONSULTANT in 1-2 days. Anemia Active 2022-12-04 N/A Slight drop in hgb-repeat CBC w/ iron studies-colonoscopy 05/2024 Bilateral chronic knee pain Active 2022-12-10 N/A Not controlled t o satisfactory 01/01. worse with walking, weight bearing. OA. Will ask PCP to refer to ortho for a steroid injectionTrial of Lidocaine-Prilocaine 2.5-2.5 % Crm Other problems related to medical facilities and other health care Active 2024-03-07 N/A .When memb er to call: 1. If bp is elevated sbp>150; dbp>90 or symptomatic-h/a, dizziness, cp, sob. 2. if there is a fall 3. if BS >300 or BS<90 or symptomatic; i.e., dizzy, off balance , shaky, general weakness. 4. if UTI symptoms arise-urinary frequency, dysuria, low abd pain. 5. if pain in knees increases/ or joint pain increased Please remember to call CBContinue to see PCP. 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 Advised to eat smaller portions with healthy snacks. *12/01/2022 Hemoglobin A1c 6.9 %12/2023 7.2% reported by member. Once a while, my son checks my BG. Sees endocrine every 2 months. If blood sugar is less than 70, and she is shaking, sweaty, and feels nausea, give 6 oz of fruit juice, or 4 glucose tablet, or 6 oz of soda to quickly raise blood sugar, recheck in 10 minutes, if still low, repeat. If above 70 and no symptoms, eat a small protein rich snack. BPH (benign prostatic hyperplasia) Active 2024-03-07 N/A tamsulosin 0.4 m g cap daily, stable Encounters Encounters Type Facility Date of Service Diagnosis/Co mplaint New patient, 30-44min 1 stable chronic or 2 minor; add modifier 95 for video, modifier 93 for phone [facility], ([place]) 12/10/2022 Abdominal distension (gaseous)Hyperlipidemia, unspecifiedMale erectile dysfunction, unspecifiedPresence of insulin pump (external) (internal)Hypertensive chronic kidney disease w stg 1-4/unsp chr kdnyGastro-esophageal reflux disease without esophagitisInsomnia, unspecifiedHypothyroidism, unspecifiedAnxiety disorder, unspecifiedChronic obstructive pulmonary disease, unspecifiedAnemia, unspecifiedChronic kidney disease, stage 3 unspecifiedLow back pain, unspecifiedPain in right kneePain in left kneeOther chronic painType 2 diabetes mellitus with diabetic chronic kidney diseaseMajor depressive disorder, recurrent, mild New patient, 30-44min 1 stable chronic or 2 minor; add modifier 95 for video, modifier 93 for phone [facility], ([place]) 12/10/2022 New patient, 30-44min 1 stable chronic or 2 minor; add modifier 95 for video, modifier 93 for [facility], ([place]) 12/10/2022 New patient, 30-44min 1 stable chronic or 2 minor; add modifier 95 for video, modifier 93 for [facility], ([place]) 12/10/2022 New patient, 30-44min 1 stable chronic or 2 minor; add modifier 95 for video, modifier 93 for phone [facility], ([place]) 12/10/2022 New patient, 30-44min 1 stable chronic or 2 minor; add modifier 95 for video, modifier 93 for phone [facility], ([place]) 12/10/2022 New patient, 30-44min 1 stable chronic or 2 minor; add modifier 95 for video, modifier 93 for phone [facility] 12/10/2022 New patient, 30-44min 1 stable chronic or 2 minor; add modifier 95 for video, modifier 93 for phone [facility] ([place] 12/10/2022 New patient, 30-44min 1 stable chronic or 2 minor; add modifier 95 for video, modifier 93 for phone [facility] 12/10/2022 New patient, 30-44min 1 stable chronic or 2 minor; add modifier 95 for video, modifier 93 for phone [facility] ([place] 12/10/2022 Estab. patient 30-39min; chronic exacerbation, 2 stable chronic or 1 acute illness add add modifier 95 for video, (do not use for phone, instead use [id number]) [facility], ([place]) 03/06/2024 Abdominal distension (gaseous)Hyperlipidemia, unspecifiedMale erectile dysfunction, unspecifiedHypertensive chronic kidney disease w stg 1-4/unsp chr kdnyGastro-esophageal reflux disease without esophagitisInsomnia, unspecifiedHypothyroidism, unspecifiedAnxiety disorder, unspecifiedChronic obstructive pulmonary disease, unspecifiedAnemia, unspecifiedChronic kidney disease, stage 3 unspecifiedType 2 diabetes mellitus with diabetic chronic kidney diseaseLow back pain, unspecifiedMajor depressive disorder, recurrent, mildPain in right kneePain in left kneeOther chronic painEnlarged prostate without lower urinary tract symptomsOther problems related to medical facilities and other health care Estab. patient 30-39min; chronic exacerbation, 2 stable chronic or 1 acute illness add add modifier 95 for video, (do not use for phone, instead use [id number]) [facility], ([place]) 03/06/2024 Estab. patient 30-39min; chronic exacerbation, 2 stable chronic or 1 acute illness add add modifier 95 for video, (do not use for phone, instead use [id number]) [facility], ([place]) 03/06/2024 Estab. patient 30-39min; chronic exacerbation, 2 stable chronic or 1 acute illness add add modifier 95 for video, (do not use for phone, instead use [id number]) [facility], ([place]) 03/06/2024 Estab. patient 30-39min; chronic exacerbation, 2 stable chronic or 1 acute illness add add modifier 95 for video, (do not use for phone, instead use [id number]) [facility], ([place]) 03/06/2024 Estab. patient 30-39min; chronic exacerbation, 2 stable chronic or 1 acute illness add add modifier 95 for video, (do not use for phone, instead use [id number]) [facility], ([place]) 03/06/2024 Estab. patient 30-39min; chronic exacerbation, 2 stable chronic or 1 acute illness add add modifier 95 for video, (do not use for phone, instead use [id number]) [facility], ([place]) 03/06/2024 Estab. patient 30-39min; chronic exacerbation, 2 stable chronic or 1 acute illness add add modifier 95 for video, (do not use for phone, instead use [id number]) [facility], ([place]) 03/06/2024 Estab. patient 30-39min; chronic exacerbation, 2 stable chronic or 1 acute illness add add modifier 95 for video, (do not use for phone, instead use [id number]) [facility], ([place]) 03/06/2024 Estab. patient 30-39min; chronic exacerbation, 2 stable chronic or 1 acute illness add add modifier 95 for video, (do not use for phone, instead use [id number]) [facility], ([place]) 03/06/2024 Estab. patient 30-39min; chronic exacerbation, 2 stable chronic or 1 acute illness add add modifier 95 for video, (do not use for phone, instead use [id number]) [facility], ([place]) 03/06/2024 Vital Signs Date of Collection Vitals 2022-12-10 06:24:57 Height - 175.01 cmWe ight - 83.92 kgBody Mass Index (BMI) - 27.4 kg/m2BP Diastolic - 78.0 mm[Hg]BP Systolic - 122.0 mm[Hg]Pain Scale - 6.0 {score} 2024-03-06 14:00:44 Weight - 76.66 kgBod y Mass Index (BMI) - 25.03 kg/m2BP Diastolic - 69.0 mm[Hg]BP Systolic - 118.0 mm[Hg] Social History Social History Social History Observation Description Effec tive Time Current Smoking Status Current every day smoker 2025-04-01 Sex Male History of Procedures Procedures Service Procedure code Service date Servicing provider Phone# New patient, 30-44min 1 stable chronic or 2 minor; add modifier 95 for video, modifier 93 for phone [id number] 2022-12-10 No Data Available No Data Available BMI obtained (3008F) 3008F 2022-12-10 No Data Availab le No Data Available Advance care planning discussed and documented in the medical record beneficiary/patient did not wish to or was unable to provide an advance care plan or name a surrogate decision-maker. (1124F) 1124F 2022-12-10 No Data Available No Data Availa ble SBP < 130 (3074F) 3074F 2022-12-10 No Data Available No Data Available DBP <80 (3078F) 3078F 2022-12-10 No Data Available No Data Available Pain Assessment - Pain Documented on a Pain Scale (1125F) 1125F 2022-12-10 No Data Available No Data Cheryl ilable Functional Status Assessed (1170F) 1170F 2022-12-10 No Data Available No Data Avail able Medication List Documented (1159F) 1159F 2022-12-10 No Data Available No Data Cheryl ilable Medication Review by prescribing provider or pharmacist documented (1160F) 1160F 2022-12-10 No Data Available No Data Cheryl ilable Advance Care Directive Advance care planning discussion documented in the medical record (1158F) 1158F 2022-12-10 No Data Available No Data Availa ble Estab. patient 30-39min; chronic exacerbation, 2 stable chronic or 1 acute illness add add modifier 95 for video, (do not use for phone, instead use [id number]) 04669 2024-03-06 No Data Available No Data Availa ble Medication List Documented (1159F) 1159F 2024-03-06 No Data Available No Data Cheryl ilable Medication Review by prescribing provider or pharmacist documented (1160F) 1160F 2024-03-06 No Data Available No Data Cheryl ilable Pain Assessment - NO pain present (1126F) 1126F 2024-03-06 No Data Available No Data A vailable BMI obtained (3008F) 3008F 2024-03-06 No Data Availab le No Data Available Advance Care Directive Advance care planning discussion documented in the medical record (1158F) 1158F 2024-03-06 No Data Available No Data Availa ble Advance care planning discussed and documented advance care plan or surrogate decision-maker was documented in the medical record. (1123F) 1123F 2024-03-06 No Data Available No Data Availa ble SBP < 130 (3074F) 3074F 2024-03-06 No Data Available No Data Available DBP <80 (3078F) 3078F 2024-03-06 No Data Available No Data Available Pain Assessment - Pain Documented on a Pain Scale (1125F) 1125F 2024-03-06 No Data Available No Data Cheryl ilable Functional Status Assessed (1170F) 1170F 2024-03-06 No Data Available No Data Avail able Functional Status Functional Category Effective Dates .ADL: Bathing dependent , Dr essing Independent , Eating Independent , Ambulation Independent with cane, Transferring Independent and Toileting Independent 2024-03-06 Children helps with IADL 2022-12-10 Mental Status Status Date AAO*3 2022-12-10 Assessments Date of Service Assessments 2022-12-10 06:24:57 BloatingBloating and nausea, simethicone (Mylicon) 125 MG chewable tabletZofran 4 mg as needed.Hyperlipidemiaatorvastatin (Lipitor) 40 MG tabletEncouraged physical activityDiet low in saturated and trans fatHealthy diet, including lots of fruits and vegetables.ED (erectile dysfunction)Viagra 100 MG tabletType 2 diabetes mellitus without complication, with halfway current use of insulin pump(FreeStyle Rajinder 2 [place]) devicedulaglutide (Trulicity) 3 MG/0.5ML solution pen-injectormetFORMIN (Glucophage) 500 MG tablet, 2 tab, bid.Advised on diabetic diet including avoiding foods with high sugar content, high carbohydrates or starchy foods like rice, potatoes. Advised to eat smaller portions with healthy snacks. *12/01/2022 Hemoglobin A1c 6.9 %Type 2 diabetes mellitus without complication, with terminal press operator current use of insulin pump(FreeStyle Rajinder 2 [place]) devicedulaglutide (Trulicity) 3 MG/0.5ML solution pen-injectormetFORMIN (Glucophage) 500 MG tablet, 2 tab, bid.Advised on diabetic diet including avoiding foods with high sugar content, high carbohydrates or starchy foods like rice, potatoes. Advised to eat smaller portions with healthy snacks. Estimated Glomerular Filt Rate >60 12/01/2022lucose 137 (H)Hemoglobin A1c 6.9Hypertensionmetoprolol succinate XL (Toprol-XL) 100 MG 24 hr tabletamLODIPine (Norvasc) 10 MG tabletchlorthalidone (Hygroton) 25 MG tablet.Discussed low-salt dietwill monitor edema and weight, follows cardiologyMonitors BP dailyHypertensionmetoprolol succinate XL (Toprol-XL) 100 MG 24 hr tabletamLODIPine (Norvasc) 10 MG tabletchlorthalidone (Hygroton) 25 MG tablet.Discussed low-salt dietwill monitor edema and weight, follows cardiologyMonitors BP dailyGERD (gastroesophageal reflux disease)lansoprazole (Prevacid) [address] capsulefamotidine (Pepcid) 40 MG tablet.Avoid excessive intake of caffeine, and spicy food, work on a healthy weight, and avoid tomato-based food, mint, etc.GERD (gastroesophageal reflux disease)lansoprazole (Prevacid) [address] capsulefamotidine (Pepcid) 40 MG tablet.Avoid excessive intake of caffeine, and spicy food, work on a healthy weight, and avoid tomato-based food, mint, etc.GERD (gastroesophageal reflux disease)lansoprazole (Prevacid) [address] capsule-cont tums prn.Avoid excessive intake of caffeine, and spicy food, work on a healthy weight, and avoid tomato-based food, mint, etc.Insomniamelatonin 5 MG tabletHypothyroidlevothyroxine (Synthroid, Levoxyl) 75 MCG tabletAnxietyhydrOXYzine pamoate (Vistaril) 25 MG capsuleWith worsening sxs ISO bereavement-trial melatonin nightly to help w/ sleep-he declines meeting w/ [facility] clinician today-he denies any SI/HI-he has the number for crisis-cont vistaril BID prn-he declines referral to therapistCOPD (chronic obstructive pulmonary disease)Sx improved-cont combivent daily-cont albuterol prnContingency plan:1. Start antibiotic(Azithromycin, doxycycline, or levaquin) 2. Increase Neb treatments/MDI use to q4h x3 days3. Call CB at the first sign of SOB or increased cough and sputum production. 4. Schedule f/u with primary WELLNESS CONSULTANT in 1-2 days. AnemiaSlight drop in hgb-repeat CBC w/ iron studies-colonoscopy nml JUL 2012Chronic kidney disease (CKD), stage III (moderate)Estimated Glomerular Filt Rate >60Urea Nitrogen (BUN) 17 (H)Creatinine 1.Encouraged kidney-friendly diet and to follow the instruction of your doctor when it comes to diet, and other medicationsType 2 diabetes mellitus without complication, with halfway current use of insulin pump-Cont metformin OWK-Zoqjixivs-Hhxa lisinopril and lipitor daily-referred to [facility] clinic for eval-s/p optho eval Jul 2017 at [facility]-> referred for eval-Foot exam annuallyLower back painUsed to take tramadol Using baclofen 10 mg daily. Lower back pain does not radiate. Not controlled to satisfactory /10. OA. Will ask PCP to refer to ortho for steroid injectionBilateral chronic knee painUsed to take tramadol Using baclofen 10 mg daily. Not controlled to satisfactory /10. worse with walking, weight bearing. OA. Will ask PCP to refer to ortho for a steroid injectionMild recurrent major depressioncontinues sertraline dailyStable. PHQ4=1 2024-03-06 14:00:44 Other problems relat ed to medical facilities and other health care<Add contingency plans here>BloatingBloating and nausea, simethicone (Mylicon) 125 MG chewable tabletZofran 4 mg as needed, refilled. Workup done in past, likely due to DM. If vomiting, fever, abd pain, call CB right awayHyperlipidemiaatorvastatin (Lipitor) 40 MG tabletEncouraged physical activityDiet low in saturated and trans fatHealthy diet, including lots of fruits and vegetables.ED (erectile dysfunction)not on medicationHypertensionmetoprolol succinate XL (Toprol-XL) 100 MG 24 hr tabletamLODIPine (Norvasc) 10 MG tabletchlorthalidone (Hygroton) 25 MG tablet.Discussed low-salt dietwill monitor edema and weight, follows cardiologyMonitors BP dailyIf blood pressure is>170/90 and symptomatic with headache, dizziness, facial flashing, can take amlodipine 5 mg (give 1/2 tablet)*1, recheck BP in 1 hour, rest. If lower 90/50s and dizziness, lay flat, elevate legs over pillows, increase fluidsGERD (gastroesophageal reflux disease)lansoprazole (Prevacid) [address] capsulefamotidine 40 mg -cont tums prn.Avoid excessive intake of caffeine, and spicy food, work on a healthy weight, and avoid tomato-based food, mint, etc.Insomniamelatonin 5 MG tabletHypothyroidlevothyroxine (Synthroid, Levoxyl) 75 MCG tabletstableAnxietyhydrOXYzine pamoate (Vistaril) 25 MG capsuleWith worsening sxs ISO bereavement-he denies any SI/HI-he has the number for crisis-cont vistaril BID prn-he declines referral to therapistOn sertraline 12.5 mg daily (pls call PCP for increase, stated will see PCP soon anyway, will ask) Anxiety not controlled wellTrial of buspar 10 mg bid PRN for break through episodesCOPD (chronic obstructive pulmonary disease)Sx improved-cont combivent daily-cont albuterol prnContingenc y plan:1. Start antibiotic(Azithromycin, doxycycline, or levaquin) 2. Increase Neb treatments/MDI use to q4h x3 days3. Call CB at the first sign of SOB or increased cough and sputum production. 4. Schedule f/u with primary WELLNESS CONSULTANT in 1-2 days. AnemiaSlight drop in hgb-repeat CBC w/ iron studies-colonoscopy 05/2024Type 2 DM with Chronic kidney disease (CKD), stage III (moderate)Estimated Glomerular Filt Rate >60Urea Nitrogen (BUN) 17 (H)Creatinine 1.23012/01/2022Encouraged kidney-friendly diet and to follow the instruction of your doctor when it comes to diet, and other medicationsmetFORMIN (Glucophage) 500 MG tablet, 2 tab, bidglipiZIDE 5 mg BIDMounjaro 5 mg/0.5ML weeklyKerendia 20 mg.Advised on diabetic diet including avoiding foods with high sugar content, high carbohydrates or starchy foods like rice, potatoes. Advised to eat smaller portions with healthy snacks. *12/01/2022 Hemoglobin A1c 6.9 %12/2023 7.2% reported by member. Once a while, my son checks my BG. Sees endocrine every 2 months. If blood sugar is less than 70, and she is shaking, sweaty, and feels nausea, give 6 oz of fruit juice, or 4 glucose tablet, or 6 oz of soda to quickly raise blood sugar, recheck in 10 minutes, if still low, repeat. If above 70 and no symptoms, eat a small protein rich snack.Lower back painUsed to take tramadol Lower back pain does not radiate. Not controlled to satisfactory 01/01. OA. Will ask PCP to refer to ortho for steroid injectionMild recurrent major depressioncontinues sertraline dailyStable. PHQ4=1Bilateral chronic knee painNot controlled to satisfactory 01/01. worse with walking, weight bearing. OA. Will ask PCP to refer to ortho for a steroid injectionTrial of Lidocaine-Prilocaine 2.5-2.5 % CrmBPH (benign prostatic hyperplasia)tamsulosin 0.4 mg cap daily, stable Plan of Care Date of Service Plans 2022-12-10 06:24:57 New Zofran 4 MG Take 1 tablet Q 4 hrs prn #30 tablet [id number] obtained (3008F)SBP < 130 (3074F)DBP <80 (3078F)Televideo new patient, 30-44min 1 stable chronic or 2 minor; add modifier 95Advance care planning discussed and documented advance care plan or surrogate decision-maker was documented in the medical record. (1123F)Advance care planning discussed and documented in the medical record beneficiary/patient did not wish to or was unable to provide an advance care plan or name a surrogate decision-maker. (1124F)Pain Assessment - Pain Documented (1125F)Continue to see PCP. Follow-up with [facility] as needed for any acute or disease education needs that may arise 14/02. 2024-03-06 14:00:44 New busPIRone 10 mg Tab 1 tablet orally BID PRN #30 tablet [id number] Lidocaine-Prilocaine 2.5-2.5 % Crm 1gm to affected area TID PRN neuropathic pain #50 gram [id number] Zofran 4 MG Take 1 tablet Q 4 hrs prn #10 tab [id number] 30-39min; chronic exacerbation, 2 stable chronic or 1 acute illness add modifier 95Functional Status Assessed (1170F)BMI obtained (3008F)Advance Care Directive Advance care planning discussion documented in the medical record (1158F)Advance care planning discussed and documented advance care plan or surrogate decision-maker was documented in the medical record. (1123F)Advance care planning discussed and documented in the medical record beneficiary/patient did not wish to or was unable to provide an advance care plan or name a surrogate decision-maker. (1124F)Pain Assessment - Pain Documented (1125F)Continue to see PCP. Follow-up with [facility] as needed for any acute or disease education needs that may arise.Call if you develop increased weakness, increased falls or impaired gaitKeep it up with walking and exercising on a routine basis. Goals Date Goal 2024-03-06 .Remember to monitor daily glucose levels and call for hypo or hyperglycemia symptoms Health Concerns Date Concern 2024-03-06 Visit completed alphonse schuler audio/video.Patient/Guardian agreed to visit via telehealth. Today, patient has chief complaint of: follow up care and comprehensive review.Reviewed Allergies, Medications, Active Medical conditions, past medical/surgical history, Social history. 2024-03-06 Most recent hospital stay(s) or ER visit(s) and precipitating factors: none 2024-03-06 Open HEDIS Measure r kayce: completed 2024-03-06 Colonoscopy 05/2024
--- OUTSIDE RECORDS SUMMARY | 2025-04-01 10:31 | XMS_ITS | Encounter Summary ---
Author Organization [employer] Address [address] [facility] 7t [place] [address] Care Team Providers Care Front End Drupal Developer Name Role Phone Suzan Hunter DO Primary Care Provider [phone] Unruly Fabian PharmD Unavailable Unavail able Shira Miller PharmD Unavailable [phone] Encounter Details Date Type Department Care Team (Late st Contact Info) Description 07/28/2022 Orders Only [facility] CH[facility] MED & PEDS [address] [place] [address] Suzan Carbajal LPN Social History Tobacco Use Types Packs/Day [...] Description 08/05/2025 10:00 AM EST Clinical Support [facility] MEDICINE [address] [place] [address] Grace Hidalgo RN documented as of this encounter Visit Diagnoses Not on filedocumented in this encounter Care Teams Front End Drupal Developer Relationship Specialty Start Date End Date Suzan Hunter DO [address] [place] [address] PCP - General Family Medicine 12/11/19 Unruly Fabian, PharmD [address] [place] [address] Pharmacist Internal Medicine 08/20/22 06/01/23 Shira Miller, CharlineD [address] [place] [address] Pharmacist Internal Medicine 06/02/23 documented as of this encounter
--- OUTSIDE RECORDS SUMMARY | 2025-04-01 10:32 | XMS_ITS | Encounter Summary ---
Author Organization [employer] Address [address] [facility] 7t [place] [address] Care Team Providers Care Box Hinge And Lock Attacher Name Role Phone Suzan Hunter DO Primary Care Provider [phone] Shira Miller PharmD Unavailable Reason for Visit * Reason Onset Date Comments Call Back Request 06/24/2023 Encounter Details Date Type Department Care Team ([facility] st Contact Info) Description 06/24/2023 Telephone [facility] MEDICINE [address] [place], [place] [phone] Suzan Hunter DO [address] [place] [address] Call Back Request Social History Tobacco Use Types Packs/Day Years [...] encounter Miscellaneous Notes * Telephone Encounter - Michael Elliott - 06/24/2023 2:26 PM EST Tc from patient requesting a call back states had a miss call and was told to call back documented in this encounter Plan of Treatment Upcoming Encounters Date Type Department Care Team (Late st Contact Info) Description 08/05/2025 10:00 AM EST Clinical Support [facility] MEDICINE [address] [place] [address] Grace Hidalgo RN documented as of this encounter Goals Goal Patient Goal Type Associated Problems Recent Progress Patient-Stated? Author Blood Pressure < 140/90 Blood Pressure 110/72(2024 8:55 AM EDT) No Dellogono, Unruly, PharmD Hemoglobin A1c < 7 Result Component 6.3( 8:57 AM EDT) No Dellogono, Unruly, PharmD documented as of this encounter Visit Diagnoses Not on filedocumented in this encounter Additional Health Concerns Assessment Noted Time PHQ-9 Depression Total Score: 0 05/24/20 23 9:17 AM EDT documented as of this encounter Care Teams Box Hinge And Lock Attacher Relationship Specialty Start Date End Date Suzan Hunter DO [address] [place] [address] PCP - General Family Medicine 12/11/19 Shira Miller, CharlineD [address] [place] [address] Pharmacist Internal Medicine 06/02/23 documented as of this encounter
--- OUTSIDE RECORDS SUMMARY | 2025-04-01 10:32 | XMS_ITS | Encounter Summary ---
Author Organization [employer] Address [address] [facility] 7t [place] [address] Care Team Providers Care Finishing Machine Operator Name Role Phone Suzan Hunter DO Primary Care Provider Shira Miller PharmD Unavailable Reason for Visit * Reason Comments Med Refill Encounter Details Date Type Department Care Team ([facility] st Contact Info) Description 03/07/2025 Refill [facility] MEDICINE [address] [place], [place] [phone] Suzan Hunter DO [address] [place] [address] Social History Tobacco Use Types Packs/Day Years [...] Description 08/05/2025 10:00 AM EST Clinical Support [facility] MEDICINE [address] [place] [address] Grace Hidalgo RN documented as of this encounter Goals Goal Patient Goal Type Associated Problems Recent Progress Patient-Stated? Author Blood Pressure < 140/90 Blood Pressure 110/72(2024 8:55 AM EDT) No DellogBhaskar andersenis, PharmD Record your blood pressure periodically. Blood Pressure No change(2023 11:04 AM EST) No Puia, Shira, PharmD Hemoglobin A1c < 7 Result Component 6.3( 8:57 AM EDT) No Dellogono Unruly, PharmD Record your blood sugar as directed Result Component Improving( 11:04 AM EST) No Puia, Shira, PharmD documented as of this encounter Visit Diagnoses Not on filedocumented in this encounter Additional Health Concerns Assessment Noted Time PHQ-9 Depression Total Score: 0 01/05/20 25 8:56 AM EDT documented as of this encounter Care Teams Finishing Machine Operator Relationship Specialty Start Date End Date Suzan Hunter DO [address] [place] [address] PCP - General Family Medicine 12/11/19 Shira Miller, CharlineD [address] [place] [address] Pharmacist Internal Medicine 06/02/23 documented as of this encounter
--- OUTSIDE RECORDS SUMMARY | 2025-04-01 10:32 | XMS_ITS | Encounter Summary ---
Author Organization [employer] Address [address] [facility] 7t [place] [address] Care Team Providers Care Senior Network Security Engineer Name Role Phone Suzan Hunter DO Primary Care Provider Shira Miller PharmD Unavailable [phone] Reason for Visit * Reason Comments Med Refill Encounter Details Date Type Department Care Team (Late st Contact Info) Description 02/28/2025 Refill [facility] MEDICINE [address] [place], [place] [phone] Suzan Hunter DO [address] [place] [address] Social History Tobacco Use Types Packs/Day Years [...] Description 08/05/2025 10:00 AM EST Clinical Support [facility] MEDICINE [address] [place] [address] Grace Hidalgo RN documented as of this [...] as of this encounter Care Teams Senior Network Security Engineer Relationship Specialty Start Date End Date Suzan Hunter DO [address] [place] [address] PCP - General Family Medicine 12/11/19 Shira Miller, CharlineD [address] [place] [address] Pharmacist Internal Medicine 06/02/23 documented as of this encounter
--- OUTSIDE RECORDS SUMMARY | 2025-04-01 10:32 | XMS_ITS | Encounter Summary ---
Author Organization [employer] Address [address] [facility] [address] 7[address] [place] [address] Care Team Providers Care Machine Shop Specialist Name Role Phone Suzan Hunter DO Primary Care Provider Shira Miller PharmD Unavailable Reason for Visit * Reason Comments Med Refill Encounter Details Date Type Department Care Team (Late st Contact Info) Description 03/26/2025 Refill [facility] CHC MED & PEDS [address] [place], [place] [phone] Suzan Hunter DO [address] [place] [address] Pain in unspecified knee Social History Tobacco [...] Description 08/05/2025 10:00 AM EST Clinical Support [facility] MEDICINE [address] [place] [address] Grace Hidalgo, JING documented as of this encounter Goals Goal [...] documented as of this encounter Care Teams Machine Shop Specialist Relationship Specialty Start Date End Date Suzan Hunter DO [address] [place] [address] PCP - General Family Medicine 12/11/19 Shira Miller, CharlineD [address] [place] [address] Pharmacist Internal Medicine 06/02/23 documented as of this encounter
--- OUTSIDE RECORDS SUMMARY | 2025-04-01 10:32 | XMS_ITS | Encounter Summary ---
Author Organization [employer] Address [address] [facility] [address] 7[address] [place] [address] Care Team Providers Care Sheep Rancher Name Role Phone Suzan Hunter DO Primary Care Provider [phone] Unruly Fabian PharmD Unavailable Unavail able Shira Miller PharmD Unavailable [phone] Reason for Visit * Reason Onset Date Comments Prior Authorization 05/26/2023 Encounter Details Date Type Department Care Team (Late st Contact Info) Description 05/26/2023 Telephone [facility] MEDICINE [address] [place], [place] [phone] Suzan Hunter DO [address] [place], [place] [phone] Prior Authorization Social History Tobacco Use Types Packs/Day Years [...] * Telephone Encounter - Michael Elliott - 06/01/2023 9:05 AM EST Tc from patient calling in regards of status of medication Tirzepatide (Mounjaro) 2.5 MG/0.5ML solution pen-injector. * Telephone Encounter - Swapna Encinas - 05/26/2023 10:06 AM EDT Tc from pt calling in regards to Tirzepatide (Mounjaro) 2.5 MG/0.5ML solution pen-injector. Was advised by pharmacy a PA is needed. documented in this encounter Plan of Treatment Upcoming Encounters Date Type Department Care Team (Late st Contact Info) Description 08/05/2025 10:00 AM EST Clinical Support [address] [address] Grace Hidalgo, JING documented as of this encounter Goals Goal Patient Goal Type Associated Problems Recent Progress Patient-Stated? Author Blood Pressure < 140/90 Blood Pressure 110/72(2024 8:55 AM EDT) No Unruly Fabian, PharmD Hemoglobin A1c < 7 Result Component 6.3(06/13/202 5 8:57 AM EDT) No Unruly Fabian, PharmD documented as of this encounter Visit Diagnoses Not on filedocumented in this encounter Additional Health Concerns Assessment Noted Time PHQ-9 Depression Total Score: 0 05/24/20 23 9:17 AM EDT documented as of this encounter Care Teams Sheep Rancher Relationship Specialty Start Date End Date Suzan Hunter DO [address] [place] [address] PCP - General Family Medicine 12/11/19 Unruly Fabian, PharmD [address] [place] [address] Pharmacist Internal Medicine 08/20/22 06/01/23 Shira Miller, CharlineD [address] [place] [address] Pharmacist Internal Medicine 06/02/23 documented as of this encounter
--- OUTSIDE RECORDS SUMMARY | 2025-04-01 10:32 | XMS_ITS | Encounter Summary ---
Author Organization [employer] Address [address] [facility] 7t [place] [address] Care Team Providers Care Community Relations Rep Name Role Phone Suzan Hunter DO Primary Care Provider Shira Millre PharmD Unavailable [phone] Reason for Visit * Reason Comments Med Refill Encounter Details Date Type Department Care Team (Late st Contact Info) Description 03/27/2025 Refill [facility] MEDICINE [address] [place], [place] [phone] Suzan Hunter DO [address] [place] [address] Skin breakdown Social History Tobacco Use Types Packs/Day Years [...] Description 08/05/2025 10:00 AM EST Clinical Support [facility] MEDICINE [address] [place] [address] Grace Hidalgo RN documented as of this encounter Goals Goal Patient Goal Type Associated Problems Recent Progress Patient-Stated? Author Blood Pressure < 140/90 Blood Pressure 110/72(2024 8:55 AM EDT) No Dellogono, Unruly, PharmD Record your blood pressure periodically. Blood Pressure No change(2023 11:04 AM EST) No Puia, Shira, PharmD Hemoglobin A1c < 7 Result Component 6.3( 8:57 AM EDT) No Dellogono, Unruly, PharmD Record your blood sugar as directed Result Component Improving( 11:04 AM EST) No Puia, Shira, PharmD documented as of this encounter Visit Diagnoses Diagnosis Skin breakdown documented in this encounter Additional Health Concerns Assessment Noted Time PHQ-9 Depression Total Score: 0 01/05/20 25 8:56 AM EDT documented as of this encounter Care Teams Community Relations Rep Relationship Specialty Start Date End Date Suzan Hunter DO [address] [place] [address] PCP - General Family Medicine 12/11/19 Shira Miller, CharlineD [address] [place] [phone] Pharmacist Internal Medicine 06/02/23 documented as of this encounter
--- OUTSIDE RECORDS SUMMARY | 2025-04-01 10:32 | XMS_ITS | Encounter Summary ---
Author Organization [employer] Address [address] [facility] 7t [place] [address] Care Team Providers Care Geology Technician Name Role Phone Suzan Hunter DO Primary Care Provider [phone] Shira Miller PharmD Unavailable [phone] Reason for Visit * Reason Comments Med Refill Encounter Details Date Type Department Care Team ([facility] st Contact Info) Description 06/17/2023 Refill [facility] MEDICINE [address] [place], [place] [phone] Suzan Hunter DO [address] [place] [address] Social History Tobacco Use Types Packs/Day Years [...] Description 08/05/2025 10:00 AM EST Clinical Support [facility] MEDICINE [address] [place] [address] Grace Hidalgo, JING documented as of this encounter Goals Goal Patient Goal Type Associated Problems Recent Progress Patient-Stated? Author Blood Pressure < 140/90 Blood Pressure 110/72(2024 8:55 AM EDT) No Unruly Fabian, PharmD Hemoglobin A1c < 7 Result Component 6.3( 8:57 AM EDT) No Unruly Fabian, PharmD documented as of this encounter Visit Diagnoses Not on filedocumented in this encounter Additional Health Concerns Assessment Noted Time PHQ-9 Depression Total Score: 0 05/24/20 23 9:17 AM EDT documented as of this encounter Care Teams Geology Technician Relationship Specialty Start Date End Date Suzan Hunter DO [address] [place] [address] PCP - General Family Medicine 12/11/19 Shira Miller PharmD [address] [place] [address] Pharmacist Internal Medicine 06/02/23 documented as of this encounter
== END ==
LOC: HO.SL 09:22
PROVIDERS: PCP Family Medicine; Visit Provider Family Medicine
DX: Z13.89 Encounter for screening for other disorder (principal)

== ENCOUNTER → 2025-06-25 07:40 | Outpatient (REF) | payer OTHER, SELFPAY ==
--- OUTSIDE RECORDS SUMMARY | 2025-06-25 07:43 | XMS_ITS | Encounter Summary ---
Author Organization [employer] Address [address] [facility] 7t [place] [address] Care Team Providers Care Data Entry Supervisor Name Role Phone Suzan Hunter DO Primary Care Provider [phone] Unruly Fabian PharmD Unavailable Unavail able Shira Miller PharmD Unavailable Encounter Details Date Type Department Care Team (Latest Contact Info) Description 11/23/2021 Abstract [facility] CONVERSIONS Dental, Provider, DDS Social History [...] Care Team (Late st Contact Info) Description 07/29/2025 9:00 AM EST Office Visit [address] [address] Suzan Hunter DO [address] [place] [address] 08/05/2025 10:00 AM EST Clinical Support [address] [address] Grace Hidalgo RN documented as of this encounter Visit Diagnoses Not on filedocumented in this encounter Care Teams Data Entry Supervisor Relationship Specialty Start Date End Date Suzan Hunter DO [address] [place] [address] PCP - General Family Medicine 12/11/19 Unruly Fabian, PharmD [address] [place] [address] Pharmacist Internal Medicine 08/20/22 06/01/23 Shira Miller, CharlineD [address] [place] [address] Pharmacist Internal Medicine 06/02/23 documented as of this encounter
--- OUTSIDE RECORDS SUMMARY | 2025-06-25 07:43 | XMS_ITS | Encounter Summary ---
Author Organization [employer] Address [address] [facility] 7t [place] [address] Care Team Providers Care Laundry Tech Name Role Phone Suzan Hunter DO Primary Care Provider DelUnruly thomson PharmD Unavailable Unavail able Shira Miller PharmD Unavailable Reason for Visit * Reason Comments Med Refill Encounter Details Date Type Department Care Team ([facility] st Contact Info) Description 11/16/2022 Refill [facility] MEDICINE [address] [place], [place] [phone] Suzan Hunter DO [address] [place], [place] [phone] Insomnia, unspecified type Social History Tobacco Use [...] Description 07/29/2025 9:00 AM EST Office Visit [address] [address] [place] [address] 08/05/2025 10:00 AM EST Clinical Support [address] [address] Grace Hidalgo, JING documented as of this [...] documented as of this encounter Care Teams Laundry Tech Relationship Specialty Start Date End Date Suzan Hunter DO [address] [place] [address] PCP - General Family Medicine 12/11/19 Unruly Fabian, PharmD [address] [place] [address] Pharmacist Internal Medicine 08/20/22 06/01/23 Shira Miller PharmD [address] [place] [address] Pharmacist Internal Medicine 06/02/23 documented as of this encounter
--- OUTSIDE RECORDS SUMMARY | 2025-06-25 07:43 | XMS_ITS | Clinical Summary ---
Author Organization [employer] Address [address] [facility] 7t [place] [address] Care Team Providers Care Catalogue Maker Name Role Phone Suzan Hunter DO Primary Care Provider Shira Miller PharmD Unavailable Allergies No known active allergies Medications Cranberry [...] complication, without long-term current use of insulin (HCC) 1 each 2 times daily. 1 kit 023 Active baclofen (Lioresal) 10 MG tablet TAKE 1 TABLET BY MOUTH THREE TIMES DAILY NEEDED FOR MUSCLE SPASMS 60 tablet 1 024 Active lansoprazole (Prevacid) [address] capsuleIndicatio ns:Chronic GERD TAKE 1 CAPSULE BY MOUTH EVERY MORNING BEFORE A MEAL 90 capsule 3 025 Active metoprolol succinate XL (Toprol-XL) 200 MG 24 hr tabletIndication s:Essential hypertension TAKE 1 TABLET BY MOUTH EVERY MORNING 90 tablet 3 025 Active tamsulosin (Flomax) 0.4 MG 24 hr capsuleIndicatio ns:Weak urinary stream TAKE 1 CAPSULE BY MOUTH EVERY EVENING 90 capsule 3 025 Active OneTouch Verio test stripIndications :Type 2 diabetes mellitus without complication, without long-term current use of insulin ([facility]) TEST BLOOD SUGAR TWICE DAILY 100 strip 5 Active Lancets (OneTouch Delica Plus [id number]) miscIndications: Type 2 diabetes mellitus without complication, without long-term current use of insulin ([facility]) TEST BLOOD SUGAR TWICE DAILY 100 each 5 Active fluticasone (Flonase) 50 MCG/ACT nasal spray Administer 1-2 sprays into each nostril Once per day. Shake gently. Before first use, prime pump. After use, clean tip and replace cap. 16 g 11 025 2025 Active famotidine (Pepcid) 20 MG tabletIndication s:Chronic GERD TAKE 1 TABLET BY MOUTH EVERY MORNING 90 tablet 3 Active acetaminophen (Tylenol 8 Hour) 650 MG ER tablet Take 1 tablet (650 mg) by mouth every 8 (eight) hours if needed for mild pain. Do not crush, chew, or split. 60 tablet 3 Active atorvastatin (Lipitor) 40 MG tablet TAKE 1 TABLET BY MOUTH EVERY EVENING 90 tablet 3 Active levothyroxine (Synthroid, Levoxyl) 75 MCG tablet [...] BY MOUTH AT BEDTIME 120 capsule 3 Active chlorthalidone (Hygroton) 25 MG tablet TAKE 1 TABLET BY MOUTH EVERY MORNING 90 tablet 3 Active chlorthalidone (Hygroton) 25 MG tablet Take 1 tablet (25 mg) by mouth in the morning. 90 tablet 3 Active Mounjaro 5 MG/0.5ML solution auto-injectorInd ications:Type 2 diabetes mellitus without complications ([facility]) INJECT ONE PEN (=5MG) SUBCUTANEOUSLY ONCE A WEEK DIRECTED 2 mL 11 06/11/20 25 12:25 PM EST 025 Active albuterol 108 (90 Base) MCG/ACT inhaler INHALE 2 PUFFS BY MOUTH EVERY 4 TO 6 HOURS NEEDED FOR WHEEZING OR SHORTNESS OF BREATH 8.5 g 3 025 Active Viagra 100 MG tablet TAKE 1 TABLET 1 HOUR BEFORE SEXUAL RELATIONS ONCE DAILY NEEDED. 10 tablet 1 025 Active glipiZIDE (Glucotrol) 5 MG tabletIndication s:Type 2 diabetes mellitus without complication, without long-term current use of insulin ([facility]) TAKE 1 TABLET BY MOUTH TWICE DAILY IN THE MORNING AND IN THE EVENING BEFORE MEALS 60 tablet 11 025 Active melatonin 5 MG tabletIndication s:Insomnia, unspecified type TAKE 1 TO 2 TABLETS BY MOUTH AT BEDTIME NEEDED FOR SLEEP 60 tablet 3 025 Active clotrimazole-bet amethasone (Lotrisone) creamIndications :Skin breakdown APPLY 1 GRAM TOPICALLY TO AFFECTED AREA(S) TWICE DAILY NEEDED 45 g 025 Active Kerendia 20 MG tabletIndication s:Type 2 diabetes mellitus without complication, without long-term current use of insulin ([facility]),Stage 3a chronic kidney disease ([facility]) ([facility]) TAKE 1 TABLET BY MOUTH EVERY DAY 30 tablet 2 025 Active Combivent Respimat 20-100 MCG/ACT inhalerIndicatio ns:Chronic obstructive pulmonary disease, unspecified COPD type (CMS/[facility]) ([facility]) INHALE 1 PUFF 4 TIMES A DAY, MAY TAKE ADDITIONAL PUFFS NEEDED. (MAX OF 6 PUFFS PER DAY) 4 g 5 025 Active metFORMIN (Glucophage) 500 MG tabletIndication s:Type 2 diabetes mellitus without complication, without long-term current use of insulin ([facility]) TAKE 2 TABLETS BY MOUTH TWICE DAILY WITH BREAKFAST AND WITH DINNER 360 tablet 3 025 Active amLODIPine (Norvasc) 10 MG tabletIndication s:Essential hypertension Take 1 tablet (10 mg) by mouth Once per day. 90 tablet 3 025 Active oxyCODONE (Roxicodone) 5 MG immediate release tabletIndication s:Pain in unspecified knee TAKE 1 TABLET BY MOUTH EVERY 8 HOURS NEEDED FOR SEVERE PAIN FOR UP TO 28 DAYS 84 tablet 025 Active olmesartan (BENIcar) 40 MG tabletIndication s:Type 2 diabetes mellitus without complication, without long-term current use of insulin ([facility]),Essential hypertension TAKE 1 TABLET BY MOUTH EVERY MORNING 30 tablet 2 025 Active olmesartan (BENIcar) 40 MG tabletIndication s:Type 2 diabetes mellitus without complication, without long-term current use of insulin ([facility]),Essential hypertension TAKE 1 TABLET BY MOUTH EVERY MORNING 30 tablet 2 025 2024 Discontinued oxyCODONE (Roxicodone) 5 MG immediate release tabletIndication s:Pain in unspecified knee Take 1 tablet (5 mg) by mouth every 8 (eight) hours if needed for severe pain for up to 28 days. Do not start before April 26, 2025. 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 -foot exam next visit* Assessment & Plan (08/27/2022 2:59 PM EST): A1c unchanged -Cont metformin BID -Cont glipizide with meals -Cont lisinopril and lipitor daily -referred to [facility] clinic for eval -s/p optho eval Jul [address] [facility]-> referred for eval -Foot exam next [...] regimen -cont home BP monitoring -f/u with [facility] pharmacist as scheduled -bump in Cr/GFR with mild urine microalbumin APR 2023, repeat next visit -optho as above Assessment & Plan (08/27/2022 2:59 PM EST): SBP elevated asymptomatic -cont metoprolol, HCTZ, amlodipine, and norvasc daily -cont lisinopril BID -advised bring broken BP cuff to [facility] pharmacy -slight bump in Cr/GFR with [...] Encounters Date Type Department Care Team Description 06/20/[address] [facility] MEDICINE [address] [place] [address] Suzan Hunter DO 06/19/[address] [facility] MEDICINE [address] [place] [address] Suzan Hunter DO Recall Appointment 06/19/2025 Travel 06/16/2025 Refill [facility] [address] [place] [address] Suzan Hunter, Type 2 diabetes mellitus without complication, without long-term current use of insulin (HCC); Essential hypertension 05/27/[address] [facility] PEDS [address] [place] [address] Suzan Hunter, Pain in unspecified knee 05/24/[address] [facility] MEDICINE [address] [place] [address] Suzan Hunter, Type 2 diabetes mellitus without complication, without long-term current use of insulin (HCC); Essential hypertension 05/08/[address] [facility] MEDICINE [address] [place] [address] Jacqueline Pryor RN Paperwork/Forms 05/08/2025 Refill [facility] [address] [place] [address] Suzan Hunter, Chronic obstructive pulmonary disease, unspecified COPD type (CMS/HCC) (HCC) 04/24/[address] [facility] [address] [place] [address] Suzan Hunter DO Pain in unspecified knee 04/20/2025 Refill [facility] [address] [place] [address] Suzan Hunter, Type 2 diabetes mellitus without complication, without long-term current use of insulin ([facility]); Stage 3a chronic kidney disease (CMS/HCC) 03/27/2025 Refill [facility] [address] [place] [address] Suzan Hunter, DO Skin breakdown 03/26/[address] [facility] [address] [place] [address] Suzan Hunter, DO Pain in unspecified knee from Last 3 Months Immunizations Immunization Administration [...] Description 07/29/2025 9:00 AM EST Office Visit [address] [address] Suzan Hunter DO [address] [place] [address] 08/05/2025 10:00 AM EST Clinical Support [address] [place] [address] Grace Hidalgo, RN Health Maintenance Due Date [...] 01/04/2026 01/04/2025 Depression Screening 01/04/2026 01/04/2025, 01/05/20 25 Disability Screening 01/04/2026 01/04/2025 Tobacco Screening 01/04/2026 [...] 110/72(2024 8:55 AM EDT) No Unruly Fabian, PharmChristoph Record your blood pressure periodically. Blood Pressure No change(2023 11:04 AM EST) No Shira Miller, PharmChristoph Hemoglobin A1c < 7 Result Component 6.3( 8:57 AM EDT) No Unruly Fabian PharmChristoph Record your blood sugar as directed Result Component Improving( 11:04 AM EST) No Shira Miller PharmChristoph Help patients manage their type 2 diabetes Care Plan Help patients manage their type 2 diabetes No Joslyn Ayala MA Weekly blood pressure task Care Plan Weekly blood pressure task No Joslyn Ayala MA Help patients manage their type 2 diabetes Care Plan Help patients manage their type 2 diabetes No Joslyn Ayala MA Patient has chronic kidney disease Care Plan Patient has chronic kidney disease No Joslyn Ayala MA Weekly blood pressure task Care Plan Weekly blood pressure task No Joslyn Ayala MA Patient has chronic kidney disease Care Plan Patient has chronic kidney disease No Joslyn Ayala MA Procedures Procedure Name Priority Date/Time Associated Diagnosis Comments POCT GLYCATED HEMOGLOBIN, TOTAL Routine 01/04/2025 8:57 AM EDT Type 2 diabetes mellitus without complication, without long-term current use of insulin (CMS/HCC) ALBUMIN, RANDOM URINE W/CREATININE Routine 05/19/2023 8:21 AM EDT LIPID PANEL, STANDARD Routine 05/19/2023 8:21 AM EDT Type 2 diabetes mellitus without complication, without long-term current use of insulin (CMS/[facility]) PROPHYLAXIS - ADULT Routine 11/23/2021 1 2:00 [...] Recently Relevant to Health Maintenance Results * (ABNORMAL) POCT HGB A1C (01/04/2025 8:57 AM EDT) Hemoglobin A1C 6.3(A) 4.0 - 6.0 % Blood 01/04/2025 8:57 AM EDT Suzan Hunter DO POINT OF CARE TEST ENTER/KYLEE T ORDERABLES Final Result * (ABNORMAL) Albumin, Random Urine W/Creatinine (05/19/2023 8:21 AM EDT) Creatinine, Urine 50.42 mg/dL [facility] Microalbumin Urine 38.0 mg/L H [facility] Microalbum Creatinine Ratio Ur 75.3(H) <30 ug/mg cr [facility] Comment:Albumin/Creatinine R atio Reference Ranges: Normal: < 30 ug/mg creatinine Microalbuminuria: 30 - 300 ug/mg creatinineClinical Albuminuria: > 300 ug/mg creatinine 05/19/2023 8:21 AM EDT 05/19/2023 11:44 AM EDT us Suzan Hunter DO LAB URINE ORDERABLES Final R esult [facility] [address] [place] [phone] * (ABNORMAL) Lipid Panel, Standard (05/19/2023 8:21 AM EDT) Triglycerides 141 <150 mg/dL [facility] Comment:Desirable Triglyceri de: less than 150 mg/dLBorderline High Triglyceride 150-199 mg/dLHigh Triglyceride: 200-499 mg/dLVery High Triglyceride: greater than or equal to 5OO mg/dL Cholesterol 142 <200 mg/dL [facility] Comment:Desirable Cholestero l: less than 200 mg/dLBorderline High Cholesterol: 200-239 mg/dLHigh Cholesterol: greater than 239 mg/dL LDL Cholesterol Calculated 76 <100 mg/dL [facility] Comment:Desirable LDL: less than 100 mg/dLNear Optimal/Above Optimal LDL: 110- 129 mg/dLBorderline High LDL: 130-159 mg/dLHigh LDL: 160-189 mg/dLVery High LDL: greater than or equal to 190 mg/dL HDL Cholesterol 38(L) >40 mg/dL [facility] Comment:Desirable HDL: great er than 40 mg/dL Note: This HDL assay may give artificially low results in patients with liver disease. Blood Venous blood specimen / Unknown 05/19/2023 8:21 AM EDT 05/19/2023 11:40 AM EDT Suzan Hunetr DO LAB BLOOD ORDERABLES Final R esult Performing Organization Address City/[facility]/ZIP Co de Phone Number [facility] [address] [place] [phone] * HEPATITIS C ANTIBODY RFLX (04/07/2020 9:55 AM EDT) HEPATITIS C ANTIBODY NONREACTIVE NON[facility] Comment: Antibodies to HCV not detected; does not exclude early acute HCV infection. 04/07/2020 9:55 AM EDT Suzan Hunter DO HISTORICAL/NON ORDERABLE LAB S Final Result Performing Organization Address [facility] Phone Number [facility] [address] * HIV AB/AG (04/07/2020 9:55 AM EDT) Pathologist [facility] HIV AG/AB NONREACTIVE NR FOUNDAT[facility] ON LAB [...] of detection of this assay. The [employer] Compliance Auditor HIV Ag/Ab Combo assay result and supplemental assay results should be interpreted in conjunction with the patient's clinical presentation, history and other laboratory results. If the results are inconsistent with clinical evidence, additional testing is suggested to confirm the result. 04/07/2020 9:55 AM EDT Suzan Hunter DO HISTORICAL/NON ORDERABLE LAB S Final Result Performing Organization Address [facility] Co de Phone Number [facility] [address] from Last 3 Months or Most Recently Relevant to Health Maintenance Additional Health Concerns Active Problems Noted Date Diagnosed Date Help patients manage their type 2 diabetes 06/19 Weekly blood pressure task 06/19/2025 Help patients manage their type 2 diabetes 06/19 Patient has chronic kidney disease 06/19/2025 Weekly blood pressure task 06/19/2025 Patient has chronic kidney disease 06/19/2025 Insurance [employer] D[employer]PLETE [facility] Care Teams Catalogue Maker Relationship Specialty Start Date End Date Suzan Hunter DO [address] [place] [phone] PCP - General Family Medicine 12/11/19 Shira Miller PharmD [address] [place] [phone] Pharmacist Internal Medicine 06/02/23
--- OUTSIDE RECORDS SUMMARY | 2025-06-25 07:43 | XMS_ITS | Encounter Summary ---
Author Organization [employer] Address [address] [facility] 7t [place] [address] Care Team Providers Care Meat Press Operator Name Role Phone Suzan Hunter DO Primary Care Provider DelUnruly thomson PharmD Unavailable Unavail able Shira Miller PharmD Unavailable Reason for Visit * Reason Comments Med Refill Encounter Details Date Type Department Care Team (Late st Contact Info) Description 02/22/[address] [facility] MEDICINE [address] [place] [address] Suzan Hunter DO [address] [place] [address] Pain in unspecified knee Social History Tobacco [...] Description 07/29/2025 9:00 AM EST Office Visit [facility] MED[facility] [address] [place] [address] Suzan Hunter DO [address] [facility] [address] 08/05/2025 10:00 AM EST Clinical Support [facility] [place] [address] Grace Hidalgo, RN documented as of this encounter Goals Goal Patient Goal Type Associated Problems Recent Progress Patient-Stated? Author Blood Pressure < 140/90 Blood Pressure 110/72(2024 8:55 AM EDT) No Unruly Fabian, PharmD Hemoglobin A1c < 7 Result Component 6.3( 8:57 AM EDT) No Unruly Fabian, CharlineD documented as of this encounter Visit Diagnoses Diagnosis Pain in unspecified knee documented in this encounter Additional Health Concerns Assessment Noted Time PHQ-9 Depression Total Score: 0 08/27/19 9:13 AM EST documented as of this encounter Care Teams Meat Press Operator Relationship Specialty Start Date End Date Suzan Hunter DO [facility] [place] [address] PCP - General Family Medicine 12/11/19 Unruly Fabian, PharmD [address] [place] [phone] Pharmacist Internal Medicine 08/20/22 06/01/23 Shira Miller PharmD [address] [place] [phone] Pharmacist Internal Medicine 06/02/23 documented as of this encounter
--- OUTSIDE RECORDS SUMMARY | 2025-06-25 07:43 | XMS_ITS | Encounter Summary ---
Author Organization [employer] Address [address] [facility] 7t [place] [address] Care Team Providers Care Dealer Development Manager Name Role Phone Suzan Hunter DO Primary Care Provider Unruly Fabian PharmD Unavailable Unavail able Shira Miller PharmD Unavailable [phone] Encounter Details Date Type Department Care Team (Latest Contact Info) Description 07/09/2019 Abstract [facility] CONVERSION[facility] Dental, Provider, DDS Social History [...] Description 07/29/2025 9:00 AM EST Office Visit [address] [address] Suzan Hunter DO [address] [place] [address] 08/05/2025 10:00 AM EST Clinical Support [address] [phone] Grace Hidalgo RN documented as of this encounter Visit Diagnoses Not on filedocumented in this encounter Care Teams Dealer Development Manager Relationship Specialty Start Date End Date Suzan Hunter DO [address] [place] [address] PCP - General Family Medicine 12/11/19 Unruly Fabian, PharmD [address] [place] [address] Pharmacist Internal Medicine 08/20/22 06/01/23 Shira Miller, CharlineD [address] [place] [address] Pharmacist Internal Medicine 06/02/23 documented as of this encounter
--- OUTSIDE RECORDS SUMMARY | 2025-06-25 07:43 | XMS_ITS | Encounter Summary ---
Author Organization [employer] Address 75 [facility] 7t [place] [address] Care Team Providers Care National Park Ranger Name Role Phone Suzan Hunter DO Primary Care Provider Unruly Fabian PharmD Unavailable Unavail able Shira Miller PharmD Unavailable Encounter Details Date Type Department Care Team (Late st Contact Info) Description 07/12/2022 Orders Only [facility] [address] [place] [phone] Andria Robb LPN Social History Tobacco Use [...] Description 07/29/2025 9:00 AM EST Office Visit [facility] MEDICINE [address] [place] [address] Suzan Hunter DO [address] [place] [phone] 08/05/2025 10:00 AM EST Clinical Support [address] [address] Grace Hidalgo RN documented as of this encounter Visit Diagnoses Not on filedocumented in this encounter Care Teams National Park Ranger Relationship Specialty Start Date End Date Suzan Hunter DO [address] [place] [address] PCP - General Family Medicine 12/11/19 Unruly Fabian, CharlineD [address] [place] [address] Pharmacist Internal Medicine 08/20/22 06/01/23 Shira Miller PharmD [address] [place] [address] Pharmacist Internal Medicine 06/02/23 documented as of this encounter
--- OUTSIDE RECORDS SUMMARY | 2025-06-25 07:43 | XMS_ITS | Encounter Summary ---
Author Organization [employer] Address [address] [facility] [address] 7[address] [place] [address] Care Team Providers Care Order Worker Name Role Phone Suzan Hunter DO Primary Care Provider Shira Miller PharmD Unavailable [phone] Reason for Visit * Reason Comments Med Refill Encounter Details Date Type Department Care Team (Late st Contact Info) Description 11/19/2024 Refill [facility] MED [facility] PEDS [address] [place], [place] [phone] Suzan Hunter DO [address] [place] [address] Pain in unspecified knee Social History Tobacco [...] Description 07/29/2025 9:00 AM EST Office Visit [address] [address] Suzan Hunter DO [address] [place] [address] 08/05/2025 10:00 AM EST Clinical Support [address] [address] Grace Hidalgo RN documented as of this encounter Goals Goal Patient Goal Type Associated Problems Recent Progress Patient-Stated? Author Blood Pressure < 140/90 Blood Pressure 110/72(2024 8:55 AM EDT) No Unruly Fabian, PharmD Record your blood pressure periodically. Blood Pressure No change(2023 11:04 AM EST) No Shira Miller PharmChristoph Hemoglobin A1c < 7 Result Component 6.3( 8:57 AM EDT) No Unruly Fabian PharmD Record your blood sugar as directed Result Component Improving( 11:04 AM EST) No Shira Miller PharmChristoph documented as of this encounter Visit Diagnoses Diagnosis Pain in unspecified knee documented in this encounter Additional Health Concerns Assessment Noted Time PHQ-9 Depression Total Score: 0 05/24/20 9:17 AM EDT documented as of this encounter Care Teams Order Worker Relationship Specialty Start Date End Date Suzan Hunter DO [address] [place] [address] PCP - General Family Medicine 12/11/19 Shira Miller PharmD [address] [place] [address] Pharmacist Internal Medicine 06/02/23 documented as of this encounter
--- OUTSIDE RECORDS SUMMARY | 2025-06-25 07:43 | XMS_ITS | Encounter Summary ---
Author Organization [employer] Address 75 [facility] 7t [place] [address] Care Team Providers Care Splicer Apprentice Name Role Phone Suzan Hunter DO Primary Care Provider [phone] Unruly Fabian PharmD Unavailable Unavail able Shira Miller PharmD Unavailable [phone] Encounter Details Date Type Department Care Team (Late st Contact Info) Description 07/28/2022 Orders Only [facility] MED [facility] PEDS [address] [place] [address] Suzan Carbajal LPN Social History Tobacco Use [...] Description 07/29/2025 9:00 AM EST Office Visit [address] [address] Suzan Hunter DO [address] [place] [address] 08/05/2025 10:00 AM EST Clinical Support [address] [address] Grace Hidalgo RN documented as of this encounter Visit Diagnoses Not on filedocumented in this encounter Care Teams Splicer Apprentice Relationship Specialty Start Date End Date JurSuzan sellers DO [address] [place] [address] PCP - General Family Medicine 12/11/19 Unruly Fabian, CharlineD [address] [place] [address] Pharmacist Internal Medicine 08/20/22 06/01/23 Shira Miller PharmD [address] [place] [address] Pharmacist Internal Medicine 06/02/23 documented as of this encounter
--- OUTSIDE RECORDS SUMMARY | 2025-06-25 07:44 | XMS_ITS | Encounter Summary ---
Author Organization [employer] Address [address] [facility] 7t [place] [address] Care Team Providers Care Fpga Design Engineer Name Role Phone Suzan Hunter DO Primary Care Provider [phone] Shira Miller PharmD Unavailable Reason for Visit * Reason Comments Med Refill Encounter Details Date Type Department Care Team ([facility] st Contact Info) Description 06/20/2025 Refill [facility] MEDICINE [address] [place], [place] [phone] Suzan Hunter DO 230 [place] [address] Social History Tobacco Use Types Packs/Day Years [...] Description 07/29/2025 9:00 AM EST Office Visit [address] [address] Suzan Hunter DO [address] [place] [address] 08/05/2025 10:00 AM EST Clinical Support [address] [address] Grace Hidalgo RN documented as of this encounter Goals Goal Patient Goal Type Associated Problems Recent Progress Patient-Stated? Author Blood Pressure < 140/90 Blood Pressure 110/72(2024 8:55 AM EDT) No Unruly Fabian, PharmD Record your blood pressure periodically. Blood Pressure No change(2023 11:04 AM EST) No Shira Miller PharmChristoph Hemoglobin A1c < 7 Result Component 6.3( 8:57 AM EDT) No Unruly Fabian, PharmD Record your blood sugar as directed Result Component Improving( 11:04 AM EST) No Shira Miller PharmD Help patients manage their type 2 diabetes [...] chronic kidney disease No Joslyn Ayala MA documented as of this encounter Visit Diagnoses Not on filedocumented in this encounter Additional Health Concerns Active Problems Noted Date Diagnosed Date Help patients manage their type 2 diabetes 06/19 Weekly blood pressure task 06/19/2025 Help patients manage their type 2 diabetes 06/19 Patient has chronic kidney disease 06/19/2025 Weekly blood pressure task 06/19/2025 Patient has chronic kidney disease 06/19/2025 Assessment Noted Time PHQ-9 Depression Total Score: 0 01/05/20 25 8:56 AM EDT documented as of this encounter Care Teams Fpga Design Engineer Relationship Specialty Start Date End Date Suzan Hunter DO [address] [place] [address] PCP - General Family Medicine 12/11/19 Shira Miller PharmD [address] [place] [address] Pharmacist Internal Medicine 06/02/23 documented as of this encounter
--- OUTSIDE RECORDS SUMMARY | 2025-06-25 07:44 | XMS_ITS | Encounter Summary ---
Author Organization [employer] Address [address] [facility] 7t [place] [address] Care Team Providers Care Tool And Equipment Rental Clerk Name Role Phone Suzan Hunter DO Primary Care Provider Shira Miller PharmD Unavailable [phone] Reason for Visit * Reason Onset Date Comments Call Back Request 06/24/2023 Encounter Details Date Type Department Care Team ([facility] st Contact Info) Description 06/24/2023 Telephone [facility] MEDICINE 230 [place], [place] [phone] Suzan Hunter DO 230 [place] [address] Call Back Request Social History Tobacco Use [...] Description 07/29/2025 9:00 AM EST Office Visit [address] [address] Suzan Hunter DO [address] [place] [address] 08/05/2025 10:00 AM EST Clinical Support [address] [address] Grace Hidalgo, JING documented as of this encounter Goals Goal Patient Goal Type Associated Problems Recent Progress Patient-Stated? Author Blood Pressure < 140/90 Blood Pressure 110/72(2024 8:55 AM EDT) No DellogUnruly andersen, PharmD Hemoglobin A1c < 7 Result Component 6.3( 8:57 AM EDT) No DellogUnruly andersen, PharmD documented as of this encounter Visit Diagnoses Not on filedocumented in this encounter Additional Health Concerns Assessment Noted Time PHQ-9 Depression Total Score: 0 05/24/20 9:17 AM EDT documented as of this encounter Care Teams Tool And Equipment Rental Clerk Relationship Specialty Start Date End Date Suzan Hunter DO [address] [place] [address] PCP - General Family Medicine 12/11/19 Shira Miller PharmD [address] [place] [address] Pharmacist Internal Medicine 06/02/23 documented as of this encounter
--- OUTSIDE RECORDS SUMMARY | 2025-06-25 07:44 | XMS_ITS | Encounter Summary ---
Author Organization [employer] Address [address] [facility] 7t [place] [address] Care Team Providers Care Strategic Partner Development Manager Name Role Phone Suzan Hunter DO Primary Care Provider Shira Miller PharmD Unavailable [phone] Reason for Visit * Reason Comments Med Refill Encounter Details Date Type Department Care Team (Late st Contact Info) Description 02/28/[address] [facility] MEDICINE 230 [place], [place] [phone] Suzan Hunter DO [address] [place] [address] Social History Tobacco Use Types Packs/Day Years [...] Description 07/29/2025 9:00 AM EST Office Visit [address] [address] Suzan Hunter DO [address] [place] [address] 08/05/2025 10:00 AM EST Clinical Support [address] [address] Grace Hidalgo, JING documented as of this encounter Goals Goal Patient Goal Type Associated Problems Recent Progress Patient-Stated? Author Blood Pressure < 140/90 Blood Pressure 110/72(2024 8:55 AM EDT) No Unruly Fabian, PharmD Record your blood pressure periodically. Blood Pressure No change(2023 11:04 AM EST) No Shira Miller, PharmD Hemoglobin A1c < 7 Result Component 6.3( 8:57 AM EDT) No Unruly Fabian, PharmD Record your blood sugar as directed Result Component Improving( 11:04 AM EST) No Shira Miller PharmD documented as of this encounter Visit Diagnoses Not on filedocumented in this encounter Additional Health Concerns Assessment Noted Time PHQ-9 Depression Total Score: 0 06/13/20 25 8:56 AM EDT documented as of this encounter Care Teams Strategic Partner Development Manager Relationship Specialty Start Date End Date Suzan Hunter DO [address] [place] [address] PCP - General Family Medicine 12/11/19 Shira Miller PharmD [address] [place] [address] Pharmacist Internal Medicine 06/02/23 documented as of this encounter
--- OUTSIDE RECORDS SUMMARY | 2025-06-25 07:44 | XMS_ITS | Encounter Summary ---
Author Organization [employer] Address [address] [facility] 7t [place] [address] Care Team Providers Care Consultant Name Role Phone Suzan Hunter DO Primary Care Provider Shira Miller PharmD Unavailable Reason for Visit * Reason Comments Med Refill Encounter Details Date Type Department Care Team ([facility] st Contact Info) Description 03/07/2025 Refill [facility] MEDICINE 230 [place], [place] [phone] Suzan Hunter DO 230 [place] [address] Social History Tobacco Use Types Packs/Day Years [...] Description 07/29/2025 9:00 AM EST Office Visit [address] [address] Suzan Hunter DO [address] [place] [address] 08/05/2025 10:00 AM EST Clinical Support [address] [address] Grace Hidalgo, JING documented as of this [...] documented as of this encounter Care Teams Consultant Relationship Specialty Start Date End Date Suzan Hunter DO 230 [place] [address] PCP - General Family Medicine 12/11/19 Shira Miller PharmD 230 [place] [address] Pharmacist Internal Medicine 06/02/23 documented as of this encounter
--- OUTSIDE RECORDS SUMMARY | 2025-06-25 07:44 | XMS_ITS | Encounter Summary ---
Author Organization [employer] Address [address] [facility] 7t [place] [address] Care Team Providers Care Skein Inspector Name Role Phone Suzan Hunter DO Primary Care Provider [phone] Shira Miller PharmD Unavailable [phone] Reason for Visit * Reason Comments Med Refill Encounter Details Date Type Department Care Team ([facility] st Contact Info) Description 06/17/2023 Refill [facility] MEDICINE 230 [place], [place] [phone] Suzan Hunter DO 230 [place] [address] Social History Tobacco Use Types Packs/Day Years [...] Description 07/29/2025 9:00 AM EST Office Visit [address] [address] Suzan Hunter DO [address] [place] [address] 08/05/2025 10:00 AM EST Clinical Support [address] [address] Grace Hidalgo RN documented as of this [...] documented as of this encounter Care Teams Skein Inspector Relationship Specialty Start Date End Date Suzan Hunter DO [address] [place] [address] PCP - General Family Medicine 12/11/19 Shira Miller, PharmD [address] [place] [address] Pharmacist Internal Medicine 06/02/23 documented as of this encounter
--- OUTSIDE RECORDS SUMMARY | 2025-06-25 07:44 | XMS_ITS | Encounter Summary ---
Author Organization [employer] Address [address] 7[address] [place] [address] Care Team Providers Care Patient Care Representative Name Role Phone Suzan Hunter DO Primary Care Provider Unruly Fabian PharmD Unavailable Unavail able Shira Miller PharmD Unavailable Reason for Visit * Reason Onset Date Comments Prior Authorization 05/26/2023 Encounter Details Date Type Department Care Team (Late st Contact Info) Description 05/26/2023 Telephone [facility] MEDICINE 230 [place], [place] [phone] Suzan Hunter DO 230 [place], [place] [phone] Prior Authorization Social History Tobacco Use Types [...] 9:00 AM EST Office Visit [facility] MEDICINE [address] [place] [address] Suzan Hunter DO 230 [place] [address] 08/05/2025 10:00 AM EST Clinical Support [facility] MEDICINE [address] [place] [address] Gwen, Grace, RN documented as of this encounter Goals Goal Patient Goal Type Associated Problems Recent Progress Patient-Stated? Author Blood Pressure < 140/90 Blood Pressure 110/72(2024 8:55 AM EDT) No Unruly Fabian PharmChristoph Hemoglobin A1c < 7 Result Component 6.3( 8:57 AM EDT) No Unruly Fabian PharmD documented as of this encounter Visit Diagnoses Not on filedocumented in this encounter Additional Health Concerns Assessment Noted Time PHQ-9 Depression Total Score: 0 05/24/20 9:17 AM EDT documented as of this encounter Care Teams Patient Care Representative Relationship Specialty Start Date End Date Suzan Hunter DO 230 [place] [address] PCP - General Family Medicine 12/11/19 Unruly Fabian PharmD [address] [place] [phone] Pharmacist Internal Medicine 08/20/22 06/01/23 Shira Miller PharmD [address] [place] [address] Pharmacist Internal Medicine 06/02/23 documented as of this encounter
--- OUTSIDE RECORDS SUMMARY | 2025-06-25 07:44 | XMS_ITS | Encounter Summary ---
Author Organization [employer] Address [address] [facility] 7t [place] [address] Care Team Providers Care Ophthalmic Technician Name Role Phone Berenice Hunterfer Primary Care Provider [phone] Shira Miller PharmD Unavailable [phone] Reason for Visit * Reason Comments Med Refill Encounter Details Date Type Department Care Team ([facility] st Contact Info) Description 10/08/2023 Refill [facility] MEDICINE [address] [place], [place] [phone] Shira Miller, PharmD 230 [place] [address] Type 2 diabetes mellitus without complication, without long-term current use of insulin ([facility]) Social History Tobacco Use Types Packs/Day Years [...] Description 07/29/2025 9:00 AM EST Office Visit [facility] MEDICINE [address] [place] [address] Suzan Hunter DO [address] [place] [address] 08/05/2025 10:00 AM EST Clinical Support [facility] MEDICINE [address] [place] [phone] Grace Hidalgo RN documented as of this [...] without long-term current use of insulin (HCC) documented in this encounter Additional Health Concerns Assessment Noted Time PHQ-9 Depression Total Score: 0 05/24/20 9:17 AM EDT documented as of this encounter Care Teams Ophthalmic Technician Relationship Specialty Start Date End Date Suzan Hunter DO [address] [place] [address] PCP - General Family Medicine 12/11/19 Shira Miller PharmD [address] [place] [address] Pharmacist Internal Medicine 06/02/23 documented as of this encounter
== END ==
LOC: HO.SL 07:40
PROVIDERS: PCP Family Medicine; Visit Provider Family Medicine
DX: G47.33 Obstructive sleep apnea (adult) (pediatric) (principal)
CPT/HCPCS: 95806

== ENCOUNTER → 2025-06-25 21:00 | Outpatient (BNV) | payer OTHER, SELFPAY | PROVIDERS: PCP Family Medicine; Visit Provider Internal Medicine | DX: G47.33 Obstructive sleep apnea (adult) (pediatric) (principal) | CPT/HCPCS: 95806 ==